=== PATIENT | male | born 1945 | race Caucasian/White ===

== ENCOUNTER 2016-09-14 12:42 | Emergency (ER) | payer MEDICARE, BC ==
[2016-09-14 13:31] VITALS: BP 113/68
[2016-09-14] MEDS ORDERED: NORMAL SALINE 1000 ML 500 ML IV ONE (14:52)
--- NOTE | 2016-09-14 14:55 | ER Document Report ---
ED Medical Screen (RME) - General Chief Complaint: Passed Out Prior to Arrival Stated Complaint: BLOOD PRESSURE CONCERNS Time seen by provider: 14:52 Mode of Arrival: Ambulatory Information source: Patient Notes: 71-year-old male has had a cough for 1-1/2 weeks, sore throat for 3 days and was sitting in Dr. Jones's office waiting to see him today but became sweaty, jerking his extremities, and syncopal episode. Currently he has no pain. He had diarrhea for 2 days. No vomiting. No headache. TRAVEL OUTSIDE OF THE [place] IN LAST 30 DAYS: No - Related Data Allergies/Adverse Reactions: ibuprofen Allergy (Verified 09/14/16 13:27) Past Medical History - Past Medical History Cardiac Medical History: Reports: Hx Hypercholesterolemia, Hx Hypertension Renal/ Medical History: Denies: Hx Peritoneal Dialysis Past Surgical History: Reports: 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) - Immunizations Hx Diphtheria, Pertussis, Tetanus Vaccination: Yes Physical Exam - Vital signs Vitals: Temp Pulse Resp BP Pulse Ox 99.3 F 68 16 113/68 94 09/14/16 13:30 09/14/16 13:30 09/14/16 13:30 09/14/16 13:30 09/14/16 13:30 Course - Vital Signs Vital signs: Temp Pulse Resp BP Pulse Ox 99.3 F 68 16 113/68 94 09/14/16 13:30 09/14/16 13:30 09/14/16 13:30 09/14/16 13:30 09/14/16 13:30
[2016-09-14 15:59] LABS: ABSOLUTE LYMPHOCYTES (AUTO) 1.1 10^3/uL (0.5-4.7); ABSOLUTE MONOCYTES (AUTO) 0.8 10^3/uL (0.1-1.4); ABSOLUTE NEUT (AUTO) 4.3 10^3/uL (1.7-8.2); BASOPHILS % (AUTO) 0.7 % (0-2); EOSINOPHILS % (AUTO) 0.6 % (0-6); HEMOGLOBIN 15.1 g/dL (13.5-17.0); HGB HCT DIFFERENCE 1.3; LYMPHOCYTES % (AUTO) 17.2 % (13-45); MEAN CORPUSCULAR HEMOGLOBIN 33.9 pg (27.0-33.4); MEAN CORPUSCULAR HGB CONC 34.3 g/dL (32.0-36.0); MEAN CORPUSCULAR VOLUME 99 fl (80-97); MONOCYTES % (AUTO) 12.8 % (3-13); RED BLOOD COUNT 4.46 10^6/uL (4.35-5.55); RED CELL DISTRIBUTION WIDTH 13.1 % (11.5-14.0); SEGMENTED NEUTROPHILS % (AUTO) 68.7 % (42-78); WHITE BLOOD COUNT 6.2 10^3/uL (4.0-10.5)
[2016-09-14 16:06] LABS: AMORPHOUS SEDIMENT,URINE TRACE /HPF; APPEARANCE,URINE CLOUDY; BILIRUBIN,URINE NEGATIVE (NEGATIVE); GLUCOSE, URINE NEGATIVE (NEGATIVE); KETONES,URINE 20 mg/dL (NEGATIVE); LEUKOCYTE ESTERASE,URINE NEGATIVE (NEGATIVE); NITRITE,URINE NEGATIVE (NEGATIVE); PROTEIN,URINE NEGATIVE (NEGATIVE); URINE SPECIFIC GRAVITY 1.029; UROBILINOGEN,URINE NEGATIVE mg/dL (<2.0)
[2016-09-14 16:18] LABS: ALANINE AMINOTRANSFERASE 28 U/L (21-72); ALBUMIN 4.3 g/dL (3.5-5.0); ALKALINE PHOSPHATASE 94 U/L (38-126); ANION GAP 13 (5-19); ASPARTATE AMINO TRANSFERASE 28 U/L (17-59); BILIRUBIN,DIRECT 0.3 mg/dL (0.0-0.4); BILIRUBIN,TOTAL 0.7 mg/dL (0.2-1.3); BLOOD UREA NITROGEN 16 mg/dL (7-20); CALCIUM 9.5 mg/dL (8.4-10.2); CARBON DIOXIDE 28 mmol/L (22-30); CHLORIDE 99 mmol/L (98-107); CREATINE KINASE 60 U/L (55-170); CREATININE RESULT 1.01 mg/dL (0.52-1.25); GLUCOSE 98 mg/dL (75-110); POTASSIUM 5.2 mmol/L (3.6-5.0); SODIUM 140.3 mmol/L (137-145); TOTAL PROTEIN 7.7 g/dL (6.3-8.2)
[2016-09-14 16:30] LABS: CREATINE KINASE MB 1.02 ng/mL (<4.55)
[2016-09-14 16:33] LABS: TROPONIN I < 0.012 ng/mL
[2016-09-14] MEDS ORDERED: NORMAL SALINE 1000 ML 1,000 ML IV ONE (18:13)
--- NOTE | 2016-09-14 18:13 | ER Document Report ---
ED General - General Chief Complaint: Passed Out Prior to Arrival Stated Complaint: BLOOD PRESSURE CONCERNS Mode of Arrival: Ambulatory Information source: Patient Notes: 71-year-old male who is on metoprolol to his blood pressure medication without checking his blood pressure today and had not eaten all day presents after syncopal episode. Patient was at his primary care physician's office notes that he felt lightheaded dizzy and passed out patient was sweaty immediately came back to Patient notes similar episode in the past due to a drop in his blood pressure denies any other concerns at this time denies any chest pain shows breath difficult to breathing TRAVEL OUTSIDE OF THE [place] IN LAST 30 DAYS: No - HPI Onset: Just prior to arrival Onset/Duration: Sudden Quality of pain: No pain Severity: Mild Pain Level: Denies Associated symptoms: Weakness Exacerbated by: Denies Relieved by: Denies Similar symptoms previously: Yes Recently seen / treated by doctor: No - Related Data Allergies/Adverse Reactions: ibuprofen Allergy (Verified 09/14/16 13:27) Past Medical History - General Information source: Patient - Social History Smoking Status: Never Smoker Cigarette use (# per day): No Chew tobacco use (# tins/day): No Smoking Education Provided: No Family History: Reviewed & Not Pertinent Patient has suicidal ideation: No Patient has homicidal ideation: No - Past Medical History Cardiac Medical History: Reports: Hx Hypercholesterolemia, Hx Hypertension Renal/ Medical History: Denies: Hx Peritoneal Dialysis Past Surgical History: Reports: 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) - Immunizations Hx Diphtheria, Pertussis, Tetanus Vaccination: Yes Review of Systems - Review of Systems Notes: REVIEW OF SYSTEMS: CONSTITUTIONAL : Denies fever, chills, or sweats. Denies recent illness. EENT: Denies eye, ear, throat, or mouth pain or symptoms. Denies nasal or sinus congestion or discharge. Denies throat, tongue, or mouth swelling or difficulty swallowing. CARDIOVASCULAR: Denies chest pain. Denies palpitations or racing or irregular heart beat. Denies ankle edema. RESPIRATORY: Denies cough, cold, or chest congestion. Denies shortness of breath, difficulty breathing, or wheezing. GASTROINTESTINAL: Denies abdominal pain or distention. Denies nausea, vomiting , or diarrhea. Denies blood in vomitus, stools, or per rectum. Denies black, tarry stools. Denies constipation. GENITOURINARY: Denies difficulty urinating, painful urination, burning, frequency, blood in urine, or discharge. MUSCULOSKELETAL: Denies back or neck pain or stiffness. Denies joint pain or swelling. SKIN: Denies rash, lesions or sores. HEMATOLOGIC : Denies easy bruising or bleeding. LYMPHATIC: Denies swollen, enlarged glands. NEUROLOGICAL: D admits to syncope PSYCHIATRIC: Denies anxiety or stress. Denies depression, suicidal ideation, or homicidal ideation. ALL OTHER SYSTEMS REVIEWED AND NEGATIVE. Dictation was performed using [employer] voice recognition software PHYSICAL EXAMINATION: GENERAL: Well-appearing, well-nourished and in no acute distress. HEAD: Atraumatic, normocephalic. EYES: Pupils equal round and reactive to light, extraocular movements intact, sclera anicteric, conjunctiva are normal. ENT: Nares patent, oropharynx clear without exudates. Moist mucous membranes. NECK: Normal range of motion, supple without lymphadenopathy LUNGS: Breath sounds clear to auscultation bilaterally and equal. No wheezes rales or rhonchi. HEART: Regular rate and rhythm without murmurs ABDOMEN: Soft, nontender, nondistended abdomen. No guarding, no rebound. No masses appreciated. Musculoskeletal: Normal range of motion, no pitting or edema. No cyanosis. NEUROLOGICAL: Cranial nerves grossly intact. Normal speech, normal gait. Normal sensory, motor exams PSYCH: Normal mood, normal affect. SKIN: Warm, Dry, normal turgor, no rashes or lesions noted. Physical Exam - Vital signs Vitals: Temp Pulse Resp BP Pulse Ox 99.3 F 68 16 113/68 94 09/14/16 13:30 09/14/16 13:30 09/14/16 13:30 09/14/16 13:30 09/14/16 13:30 Course - Re-evaluation Re-evalutation: 09/14/16 18:27 Physical examination lab work note no significant abnormality, appears patient was a primary care office because of a sore throat and congestion. He notes he has been hydrating poorly and appears to have been secondary to a hypotensive issue. Patient will be given IV fluids and I expect discharge - Vital Signs Vital signs: Temp Pulse Resp BP Pulse Ox 99.3 F 68 16 113/68 94 09/14/16 13:30 09/14/16 13:30 09/14/16 13:30 09/14/16 13:30 09/14/16 13:30 - Laboratory Result Diagrams: 09/14/16 15:10 09/14/16 15:10 Laboratory results interpreted by me: 09/14/16 09/14/16 09/14/16 15:10 15:10 15:10 MCV 99 H MCH 33.9 H Potassium 5.2 H Urine Ketones 20 H Urine Ascorbic Acid 40 H Discharge - Discharge Clinical Impression: Syncope Qualifiers: Syncope type: unspecified Qualified Code(s): R55 - Syncope and collapse Hypotension Qualifiers: Hypotension type: unspecified hypotension type Qualified Code(s): I95.9 - Hypotension, unspecified Condition: Stable Disposition: HOME, SELF-CARE Instructions: Syncopal Episode ([facility]) Referrals: FREDO CORRALES MD [Primary Care Provider] - Follow up tomorrow
--- NOTE | 2016-09-14 18:18 | EKG REPORT ---
SEVERITY:- ABNORMAL ECG - SINUS RHYTHM ATRIAL PREMATURE COMPLEX INCOMPLETE RIGHT BUNDLE BRANCH BLOCK : Confirmed by: John Tsai MD 14-Sep-2016 18:18:07
== END 2016-09-14 19:32 | disposition home or self-care (01) ==
LOC: ER 12:42
DX: I95.9 Hypotension, unspecified (principal); R55 Syncope and collapse; R53.1 Weakness; I10 Essential (primary) hypertension; Z95.1 Presence of aortocoronary bypass graft; Z88.6 Allergy status to analgesic agent
CPT/HCPCS: 93005; 99285; 36415; 82553; 82550; 85025; 80053; 81001; 84484; 93010; J7030

== ENCOUNTER → 2017-01-19 | Outpatient (CLI) | payer MEDICARE, BC ==
--- NOTE | 2017-01-19 13:27 | RADIOLOGY REPORT (SQ) ---
EXAM DESCRIPTION: CHEST PA/LATERAL COMPLETED DATE/TIME: 01/19/2017 1:20 pm REASON FOR STUDY: FEVER, UNSPECIFIED COMPARISON: 04/11/2015 EXAM PARAMETERS: NUMBER OF VIEWS: two views TECHNIQUE: Digital Frontal and Lateral radiographic views of the chest acquired. RADIATION DOSE: NA LIMITATIONS: none FINDINGS: LUNGS AND PLEURA: No opacities, masses or pneumothorax. No pleural effusion. MEDIASTINUM AND HILAR STRUCTURES: No masses or contour abnormalities. HEART AND VASCULAR STRUCTURES: Heart normal size. No evidence for failure. BONES: No acute findings. HARDWARE: Sternotomy wires are in place. OTHER: Metallic density overlying the upper right lateral chest wall is unchanged. IMPRESSION: NO SIGNIFICANT RADIOGRAPHIC FINDING IN THE CHEST. TECHNICAL DOCUMENTATION: JOB ID: [id number] [employer]- All Rights Reserved
== END ==
LOC: OD 13:01
PROVIDERS: ATTEND Family Medicine
DX: R50.9 Fever, unspecified (principal)
CPT/HCPCS: 71020; 87804

== ENCOUNTER 2017-01-21 11:08 | Inpatient (IN) | payer MEDICARE, BC ==
[2017-01-21] MEDS ORDERED: ONDANSETRON HCL INJ/PF 4 MG/2 ML SDV IV PRN (11:20)
[2017-01-21] MEDS ORDERED: ACETAMINOPHEN 325 MG TABLET PO PRN (11:20)
[2017-01-21 12:14] LABS: ABSOLUTE BASOPHILS # (AUTO) 0.1 10^3/uL (0.0-0.2); ABSOLUTE NEUT (AUTO) 3.4 10^3/uL (1.7-8.2); EOSINOPHILS % (AUTO) 0.7 % (0-6); HEMOGLOBIN 15.6 g/dL (13.5-17.0); HGB HCT DIFFERENCE -0.2; LYMPHOCYTES % (AUTO) 18.7 % (13-45); MEAN CORPUSCULAR HEMOGLOBIN 33.2 pg (27.0-33.4); MEAN CORPUSCULAR HGB CONC 33.2 g/dL (32.0-36.0); MEAN CORPUSCULAR VOLUME 100 fl (80-97); MONOCYTES % (AUTO) 18.8 % (3-13); RED CELL DISTRIBUTION WIDTH 13.4 % (11.5-14.0); SEGMENTED NEUTROPHILS % (AUTO) 60.8 % (42-78); WHITE BLOOD COUNT 5.5 10^3/uL (4.0-10.5)
[2017-01-21 12:21] LABS: PROTHROMBIN TIME 17.9 SEC (11.4-15.4)
--- NOTE | 2017-01-21 12:24 | PDOC H&P ---
History of Present Illness Admission Date/PCP: 01/21/17 11:08 FREDO CORRALES MD Patient complains of: Fever and weakness History of Present Illness: BRENNAN NEWBERRY is a 71 year old male This 71-year-old male with a history of the coronary artery disease status post bypass with the history of the atrial flutter [facility] of the hypertensions and hyperlipidemia came to my office couple of days back with a complaint of fever 100.4 and not feeling well with complaints some urinary frequency Patients denied any cough no chest painDenied any nausea no vomiting Patient at the times to do blood work including the CBC Chem-12In the urine culture blood culture and was all negative Patient's chest x-ray was also negative and influenza test also negative to Since prostate exam was also negative for any infections Patient was empirically given the Levaquin until the cultures back Patients denied any headache no neck stiffness Patient is followed today in office with still have 100.4 fever and still not feeling well With the discussed with the patient and the patient recently see his mother in a nursing homes with his mother have a history of C. difficile colitis in the past Patient's complaint was some mild loose stool but other than that no other symptoms At this point decided to patient admit for this fever of unknown origin for further evaluations Past Medical History Cardiac Medical History: Reports: Atrial Fibrillation, Coronary Artery Disease, Hyperlipidema, Hypertension Past Surgical History Past Surgical History: Reports: Coronary Artery Bypass Graft, Tonsillectomy Social History Information Source: Patient Smoking Status: Never Smoker Frequency of Alcohol Use: Rare Hx Recreational Drug Use: No Family History Family History: Reviewed & Not Pertinent Parental Family History Reviewed: Yes Children Family History Reviewed: Yes Sibling(s) Family History Reviewed.: Yes Medication/Allergy Home Medications: Ascorbic Acid [Vitamin C 500 Mg Tablet] 500 mg PO DAILY 11/27/11 Aspirin [Aspirin 81 mg Chewable Tablet] 81 mg PO DAILY 11/27/11 Losartan Potassium [Cozaar 25 Mg Tablet] 25 mg PO DAILY 11/27/11 Metoprolol Tartrate [Lopressor 25 Mg Tablet] 25 mg PO DAILY 11/27/11 Multivitamin [Multiple Vitamins] 1 each PO DAILY 11/27/11 [place]-3 Fatty Acids/Fish Oil [Fish Oil 1,[address]] 2 each PO DAILY 28/04 Simvastatin [Zocor 20 mg Tablet] 20 mg PO QHS 11/27/11 Albuterol Sulfate [Proair HFA Inhalation Aerosol 8.5 gm MDI] 2 puff IH Q4H PRN # 1 mdi 04/11/15 Levofloxacin [Levaquin 750 mg Tablet] 750 mg PO DAILY #5 tablet 04/11/15 Prednisone [Deltasone 20 mg Tablet] 3 tab PO DAILY 4 Days tablet 04/11/15 Allergies/Adverse Reactions: ibuprofen Allergy (Verified 09/14/16 13:27) Review of Systems Constitutional: PRESENT: chills, fever(s), night sweats, weakness. ABSENT: headache(s), weight gain, weight loss Eyes: ABSENT: visual disturbances Ears: ABSENT: hearing changes Cardiovascular: ABSENT: chest pain, dyspnea on exertion, edema, orthropnea, palpitations Respiratory: ABSENT: cough, hemoptysis Gastrointestinal: PRESENT: bloating, diarrhea. ABSENT: abdominal pain, constipation, hematemesis, hematochezia, nausea, vomiting Genitourinary: ABSENT: dysuria, hematuria Musculoskeletal: ABSENT: joint swelling Integumentary: ABSENT: rash, wounds Neurological: ABSENT: abnormal gait, abnormal speech, confusion, dizziness, focal weakness, syncope Psychiatric: ABSENT: anxiety, depression, homidical ideation, suicidal ideation Endocrine: ABSENT: cold intolerance, heat intolerance, menstrual abnormalities, polydipsia, polyuria Hematologic/Lymphatic: ABSENT: easy bleeding, easy bruising, lymphadenopathy Physical Exam General appearance: PRESENT: no acute distress, well-developed, well-nourished Head exam: PRESENT: atraumatic, normocephalic Eye exam: PRESENT: conjunctiva pink, EOMI, PERRLA. ABSENT: scleral icterus Ear exam: PRESENT: normal external ear exam Mouth exam: PRESENT: moist, tongue midline Neck exam: PRESENT: full ROM. ABSENT: carotid bruit, JVD, lymphadenopathy, thyromegaly Respiratory exam: PRESENT: clear to auscultation mitch Cardiovascular exam: PRESENT: RRR. ABSENT: diastolic murmur, rubs, systolic murmur Pulses: PRESENT: normal dorsalis pedis pul, +2 pedal pulses bilateral Vascular exam: PRESENT: normal capillary refill GI/Abdominal exam: PRESENT: normal bowel sounds, soft. ABSENT: distended, guarding, mass, organolmegaly, rebound, tenderness Rectal exam: PRESENT: deferred Extremities exam: ABSENT: pedal edema Musculoskeletal exam: PRESENT: ambulatory Neurological exam: PRESENT: alert, awake, oriented to person, oriented to place , oriented to time, oriented to situation, CN II-XII grossly intact. ABSENT: motor sensory deficit Psychiatric exam: PRESENT: appropriate affect, normal mood. ABSENT: homicidal ideation, suicidal ideation Skin exam: PRESENT: dry, intact, warm. ABSENT: cyanosis, rash Assessment & Plan - Diagnosis (1) Fever Qualifiers: Fever type: unspecified Qualified Code(s): R50.9 - Fever, unspecified Is this a current diagnosis for this admission?: Yes Plan: With unclear etiology with the recent symptom exposure will repeat the blood culture urine culture and MRSA culture will get the CT of the chest and abdomen and pelvis to rule out any occult infections Patients do not have any sign of any meningitis and denied any complaints Start some IV antibiotic until all cultures back patient's already received 3 days of the Levaquin p.o. (2) Coronary artery disease Qualifiers: Coronary Disease-Associated Artery/Lesion type: unspecified vessel or lesion type Is this a current diagnosis for this admission?: Yes Plan: Patient recently see the [facility] cardiology and the patient's all the test was stable and according to the patient (3) Hypertension Qualifiers: Hypertension type: essential hypertension Qualified Code(s): I10 - Essential (primary) hypertension Is this a current diagnosis for this admission?: Yes Plan: Continues to current medications (4) Atrial flutter Qualifiers: Atrial flutter type: unspecified Qualified Code(s): I48.92 - Unspecified atrial flutter Is this a current diagnosis for this admission?: Yes Plan: Patient's currently on Eliquis for the cardiology (5) Hyperlipidemia Qualifiers: Hyperlipidemia type: unspecified Qualified Code(s): E78.5 - Hyperlipidemia , unspecified Is this a current diagnosis for this admission?: Yes Plan: Continues current medications (6) Impaired fasting glucose Is this a current diagnosis for this admission?: Yes Plan: Put the patient on a sliding scale - Time Time Spent: 30 to 50 Minutes Medications reviewed and adjusted accordingly: Yes Anticipated discharge: Home Within: Other - Inpatient Certification Medical Necessity: Need Close Monitoring Due to Risk of Patient Decompensation, Need for IV Antibiotics 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
[2017-01-21 12:33] LABS: ALANINE AMINOTRANSFERASE 51 U/L (21-72); ALKALINE PHOSPHATASE 103 U/L (38-126); ANION GAP 14 (5-19); ASPARTATE AMINO TRANSFERASE 53 U/L (17-59); BILIRUBIN,DIRECT 0.4 mg/dL (0.0-0.4); BILIRUBIN,TOTAL 0.6 mg/dL (0.2-1.3); BLOOD UREA NITROGEN 19 mg/dL (7-20); CALCIUM 9.3 mg/dL (8.4-10.2); CARBON DIOXIDE 25 mmol/L (22-30); CHLORIDE 96 mmol/L (98-107); CREATINE KINASE 74 U/L (55-170); CREATININE RESULT 1.75 mg/dL (0.52-1.25); GLUCOSE 108 mg/dL (75-110); MAGNESIUM 2.1 mg/dL (1.6-2.3); POTASSIUM 4.8 mmol/L (3.6-5.0); SODIUM 134.6 mmol/L (137-145); TOTAL PROTEIN 7.2 g/dL (6.3-8.2)
[2017-01-21 12:45] LABS: CREATINE KINASE MB 1.49 ng/mL (<4.55); TROPONIN I 0.021 ng/mL
[2017-01-21] MEDS: CEFEPIME 1 GM/D5W RTU 1 GM/50 ML RTUPB IV SCH ×2 (12:58→23:05)
[2017-01-21] MEDS: NORMAL SALINE 1000 ML 1,000 ML IV PRN ×2 (12:59→23:04)
--- NOTE | 2017-01-21 13:51 | EKG REPORT ---
SEVERITY:- ABNORMAL ECG - SINUS RHYTHM INCOMPLETE RIGHT BUNDLE BRANCH BLOCK : Confirmed by: John Tsai MD 21-Jan-2017 13:50:23
[2017-01-21 15:25] LABS: CREATINE KINASE MB 1.54 ng/mL (<4.55); TROPONIN I 0.016 ng/mL
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
[2017-01-21] MEDS: LANSOPRAZOLE 15 MG TAB.RAP.DR PO SCH (18:09)
[2017-01-21] MEDS: CETIRIZINE 5 MG TABLET PO SCH (18:09)
[2017-01-21] MEDS: METOPROLOL TARTRATE 25 MG TABLET PO SCH (21:48)
[2017-01-21] MEDS: ATORVASTATIN CALCIUM 40 MG TABLET PO SCH (21:49)
[2017-01-21 21:50] LABS: CREATINE KINASE MB 2.27 ng/mL (<4.55)
[2017-01-21] MEDS: APIXABAN 5 MG TABLET PO SCH (21:50)
[2017-01-21 22:01] LABS: TROPONIN I < 0.012 ng/mL
[2017-01-22 03:38] LABS: ABSOLUTE BASOPHILS # (AUTO) 0.1 10^3/uL (0.0-0.2); ABSOLUTE EOSINOPHILS # (AUTO) 0.2 10^3/uL (0.0-0.6); ABSOLUTE LYMPHOCYTES (AUTO) 1.4 10^3/uL (0.5-4.7); ABSOLUTE MONOCYTES (AUTO) 0.9 10^3/uL (0.1-1.4); ABSOLUTE NEUT (AUTO) 3.1 10^3/uL (1.7-8.2); BASOPHILS % (AUTO) 1.1 % (0-2); EOSINOPHILS % (AUTO) 3.3 % (0-6); HEMATOCRIT 40.3 % (37.9-51.0); HEMOGLOBIN 14.1 g/dL (13.5-17.0); LYMPHOCYTES % (AUTO) 25.1 % (13-45); MEAN CORPUSCULAR HEMOGLOBIN 34.2 pg (27.0-33.4); MEAN CORPUSCULAR HGB CONC 34.9 g/dL (32.0-36.0); MEAN CORPUSCULAR VOLUME 98 fl (80-97); MONOCYTES % (AUTO) 15.4 % (3-13); RED BLOOD COUNT 4.11 10^6/uL (4.35-5.55); RED CELL DISTRIBUTION WIDTH 13.2 % (11.5-14.0); SEGMENTED NEUTROPHILS % (AUTO) 55.1 % (42-78); WHITE BLOOD COUNT 5.6 10^3/uL (4.0-10.5)
[2017-01-22 03:46] LABS: ANION GAP 8 (5-19); BLOOD UREA NITROGEN 21 mg/dL (7-20); CALCIUM 8.7 mg/dL (8.4-10.2); CARBON DIOXIDE 28 mmol/L (22-30); CHLORIDE 98 mmol/L (98-107); CREATINE KINASE 67 U/L (55-170); CREATININE RESULT 1.08 mg/dL (0.52-1.25); GLUCOSE 101 mg/dL (75-110); POTASSIUM 4.1 mmol/L (3.6-5.0); SODIUM 133.6 mmol/L (137-145)
[2017-01-22 03:58] LABS: CREATINE KINASE MB 2.59 ng/mL (<4.55); TROPONIN I < 0.012 ng/mL
[2017-01-22] MEDS: LANSOPRAZOLE 15 MG TAB.RAP.DR PO SCH ×2 (05:31→17:26)
--- NOTE | 2017-01-22 08:44 | PDOC CONSULTATION ---
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 Corrales, also about 3-4 weeks ago he began having signs and symptoms of A. fib, went to cardiology and has been placed on different rate control meds as well as Eliquis. Dr. Corrales decided to admit the patient because of the fever of unknown origin that did not seem to resolve with outpatient therapy, he is placed on broad-spectrum antibiotics, cultures blood urine sputum are all pending, of note CBC indicated a monocytosis, Monospot test was negative, influenza test was negative, we have sent a flow cytometry. Of note, he did have CT of the chest abdomen pelvis looking for occult source of infection, this indicated a right upper lobe 1.1 x 1.3 cm lung nodule along with a 2.2 cm subcarinal lymph node. Past Medical History Cardiac Medical History: Reports: Atrial Fibrillation, Coronary Artery Disease, Hyperlipidema, Hypertension Past Surgical History Past Surgical History: Reports: Coronary Artery Bypass Graft, Tonsillectomy Social History Information Source: Patient Smoking Status: Former Smoker Cigarettes Packs Per Day: 1.5 Number of Years Smokin Frequency of Alcohol Use: Rare Hx Recreational Drug Use: No Hx Prescription Drug Abuse: No - Advance Directive Resuscitation Status: Full Code Family History Family History: Reviewed & Not Pertinent Parental Family History Reviewed: Yes Children Family History Reviewed: Yes Sibling(s) Family History Reviewed.: Yes Medication/Allergy Home Medications: Apixaban [Eliquis] 5 mg PO Q12 01/21/17 Aspirin [Ecotrin 81 mg EC Tablet] 81 mg PO DAILY 01/21/17 Atorvastatin Calcium [Lipitor 40 mg Tablet] 40 mg PO QHS 01/21/17 Levocetirizine Dihydrochloride [Xyzal] 5 mg PO QPM 01/21/17 Losartan Potassium [Cozaar 25 mg Tablet] 25 mg PO DAILY 01/21/17 Metoprolol Tartrate [Lopressor 25 mg Tablet] 25 mg PO Q12 01/21/17 Multivitamin [Daily Multiple Vitamin] 1 tab PO DAILY 01/21/17 Stanley-3 Fatty Acids [Fish Oil Concentrate] 1,000 mg PO QHS 01/21/17 Allergies/Adverse Reactions: ibuprofen Allergy (Verified 09/14/16 13:27) Review of Systems Constitutional: ABSENT: chills, fever(s), headache(s), weight gain, weight loss Eyes: ABSENT: visual disturbances Ears: ABSENT: hearing changes Cardiovascular: ABSENT: chest pain, dyspnea on exertion, edema, orthropnea, palpitations Respiratory: ABSENT: cough, hemoptysis Gastrointestinal: ABSENT: abdominal pain, constipation, diarrhea, hematemesis, hematochezia, nausea, vomiting Genitourinary: ABSENT: dysuria, hematuria Musculoskeletal: ABSENT: joint swelling Integumentary: ABSENT: rash, wounds Neurological: ABSENT: abnormal gait, abnormal speech, confusion, dizziness, focal weakness, syncope Psychiatric: ABSENT: anxiety, depression, homidical ideation, suicidal ideation Endocrine: ABSENT: cold intolerance, heat intolerance, polydipsia, polyuria Hematologic/Lymphatic: ABSENT: easy bleeding, easy bruising Physical Exam Vital Signs: Temp Pulse Resp BP Pulse Ox 100.7 F H 70 16 118/69 94 01/22/17 03:34 01/22/17 03:34 01/22/17 03:34 01/22/17 03:34 01/22/17 03:34 Intake & Output 01/21/17 01/22/17 01/23/17 06:59 06:59 06:59 Intake Total 3121 Output Total 200 Balance 2921 Weight 90.2 kg General appearance: PRESENT: no acute distress, well-developed, well-nourished Head exam: PRESENT: atraumatic, normocephalic Eye exam: PRESENT: conjunctiva pink, EOMI, PERRLA. ABSENT: scleral icterus Ear exam: PRESENT: normal external ear exam Mouth exam: PRESENT: moist, tongue midline Neck exam: ABSENT: carotid bruit, JVD, lymphadenopathy, thyromegaly Respiratory exam: PRESENT: clear to auscultation mitch. ABSENT: rales, rhonchi, wheezes Cardiovascular exam: PRESENT: RRR. ABSENT: diastolic murmur, rubs, systolic murmur Pulses: PRESENT: normal dorsalis pedis pul Vascular exam: PRESENT: normal capillary refill GI/Abdominal exam: PRESENT: normal bowel sounds, soft. ABSENT: distended, guarding, mass, organolmegaly, rebound, tenderness Rectal exam: PRESENT: deferred Extremities exam: PRESENT: full ROM. ABSENT: calf tenderness, clubbing, pedal edema Neurological exam: PRESENT: alert, awake, oriented to person, oriented to place , oriented to time, oriented to situation, CN II-XII grossly intact. ABSENT: motor sensory deficit Psychiatric exam: PRESENT: appropriate affect, normal mood. ABSENT: homicidal ideation, suicidal ideation Skin exam: PRESENT: dry, intact, warm. ABSENT: cyanosis, rash Results Laboratory Results: 01/22/17 03:24 01/22/17 03:24 01/21/17 01/21/17 01/21/17 11:50 11:50 12:50 WBC 5.5 RBC 4.70 Hgb 15.6 Hct 47.0 MCV 100 H MCH 33.2 MCHC 33.2 RDW 13.4 Plt Count 146 L Seg Neutrophils % 60.8 Lymphocytes % 18.7 Monocytes % 18.8 H Eosinophils % 0.7 Basophils % 1.0 Absolute Neutrophils 3.4 Absolute Lymphocytes 1.0 Absolute Monocytes 1.0 Absolute Eosinophils 0.0 Absolute Basophils 0.1 Sodium 134.6 L Potassium 4.8 Chloride 96 L Carbon Dioxide 25 Anion Gap 14 BUN 19 Creatinine 1.75 H Est GFR ( Amer) 47 L Est GFR (Non-Af Amer) 39 L Glucose 108 Lactic Acid Calcium 9.3 Magnesium 2.1 Total Bilirubin 0.6 AST 53 ALT 51 Alkaline Phosphatase 103 Total Protein 7.2 Albumin 4.0 Stool for White Cells NO WBCs SEEN 01/21/17 01/22/17 01/22/17 16:15 03:24 03:24 WBC 5.6 RBC 4.11 L Hgb 14.1 Hct 40.3 MCV 98 H MCH 34.2 H MCHC 34.9 RDW 13.2 Plt Count 129 L Seg Neutrophils % 55.1 Lymphocytes % 25.1 Monocytes % 15.4 H Eosinophils % 3.3 Basophils % 1.1 Absolute Neutrophils 3.1 Absolute Lymphocytes 1.4 Absolute Monocytes 0.9 Absolute Eosinophils 0.2 Absolute Basophils 0.1 Sodium 133.6 L Potassium 4.1 Chloride 98 Carbon Dioxide 28 Anion Gap 8 BUN 21 H Creatinine 1.08 Est GFR ( Amer) > 60 Est GFR (Non-Af Amer) > 60 Glucose 101 Lactic Acid 1.0 Calcium 8.7 Magnesium Total Bilirubin AST ALT Alkaline Phosphatase Total Protein Albumin Stool for White Cells 01/21/17 01/21/17 01/21/17 11:50 11:50 13:51 Creatine Kinase 74 58 CK-MB (CK-2) 1.49 Troponin I 0.021 01/21/17 01/21/17 01/21/17 13:51 21:05 21:05 Creatine Kinase 69 CK-MB (CK-2) 1.54 2.27 Troponin I 0.016 < 0.012 01/22/17 01/22/17 03:24 03:24 Creatine Kinase 67 CK-MB (CK-2) 2.59 Troponin I < 0.012 Impressions: Abdomen/Pelvis CT 01/21/17 00:00 IMPRESSION: Right upper lobe nodule worrisome for malignancy. Consider PET-CT for followup. No focal acute infiltrates. Unremarkable CT the abdomen pelvis with oral contrast. Chest CT 01/21/17 00:00 IMPRESSION: Right upper lobe nodule worrisome for malignancy. Consider PET-CT for followup. No focal acute infiltrates. Unremarkable CT the abdomen pelvis with oral contrast. Status: Image reviewed by me Assessment & Plan - Diagnosis (1) Fever Qualifiers: Fever type: unspecified Qualified Code(s): R50.9 - Fever, unspecified Is this a current diagnosis for this admission?: Yes Plan: Patient with fever of unknown origin, agree with current workup and antibiotics , I suggested the possibility of arboviral infection, Dr. Corrales will do testing for that as well as place patient on doxycycline. We do have flow cytometry pending for a monocytosis. I do not believe the lung findings are causing this , it is unlikely that he has some sort of a lymphoma or blood dyscrasia causing this. It is much more likely to be some sort of arboviral or other atypical infection. (2) Solitary pulmonary nodule Is this a current diagnosis for this admission?: Yes Plan: Patient with solitary pulmonary nodule, along with subcarinal adenopathy, with smoking history concerning for a primary lung cancer, we will work this up further as an outpatient with PET/CT. We would like the fever to resolve before we do PET/CT however. - Time Time Spent: Greater than 70 Minutes Critical Time spent with patient: 35 or more minutes - Inpatient Certification Based on my medical assessment, after consideration of the patient's comorbidities, presenting symptoms, or acuity I expect that the services needed warrant INPATIENT care.: Yes I certify that my determination is in accordance with my understanding of Medicare's requirements for reasonable and necessary INPATIENT services [42 CFR 412.3e].: Yes Medical Necessity: Failure to Improve With Outpatient Therapy, Need for IV Antibiotics
[2017-01-22] MEDS: ASPIRIN 81 MG TABLET, ENT COATED PO SCH (09:52)
[2017-01-22] MEDS: APIXABAN 5 MG TABLET PO SCH ×2 (09:53→21:33)
[2017-01-22] MEDS: METOPROLOL TARTRATE 25 MG TABLET PO SCH ×2 (09:53→21:31)
[2017-01-22] MEDS: CEFEPIME 1 GM/D5W RTU 1 GM/50 ML RTUPB IV SCH (11:19)
[2017-01-22] MEDS: NORMAL SALINE 1000 ML 1,000 ML IV PRN (11:19)
--- NOTE | 2017-01-22 13:04 | PDOC PROGRESS REPORT ---
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2 kg General appearance: PRESENT: no acute distress, well-developed, well-nourished Head exam: PRESENT: atraumatic, normocephalic Eye exam: PRESENT: conjunctiva pink, EOMI, PERRLA. ABSENT: scleral icterus Ear exam: PRESENT: normal external ear exam Mouth exam: PRESENT: moist, tongue midline Neck exam: PRESENT: full ROM. ABSENT: carotid bruit, JVD, lymphadenopathy, thyromegaly Respiratory exam: PRESENT: clear to auscultation mitch Cardiovascular exam: PRESENT: RRR. ABSENT: diastolic murmur, rubs, systolic murmur Pulses: PRESENT: normal dorsalis pedis pul, +2 pedal pulses bilateral Vascular exam: PRESENT: normal capillary refill GI/Abdominal exam: PRESENT: normal bowel sounds, soft. ABSENT: distended, guarding, mass, organolmegaly, rebound, tenderness Rectal exam: PRESENT: deferred Neurological exam: PRESENT: alert, awake, oriented to person, oriented to place , oriented to time, oriented to situation, CN II-XII grossly intact. ABSENT: motor sensory deficit Psychiatric exam: PRESENT: appropriate affect, normal mood. ABSENT: homicidal ideation, suicidal ideation Skin exam: PRESENT: dry, intact, warm. ABSENT: cyanosis, rash Results Laboratory Results: 01/22/17 03:24 01/22/17 03:24 01/21/17 01/21/17 01/22/17 12:50 16:15 03:24 WBC 5.6 RBC 4.11 L Hgb 14.1 Hct 40.3 MCV 98 H MCH 34.2 H MCHC 34.9 RDW 13.2 Plt Count 129 L Seg Neutrophils % 55.1 Lymphocytes % 25.1 Monocytes % 15.4 H Eosinophils % 3.3 Basophils % 1.1 Absolute Neutrophils 3.1 Absolute Lymphocytes 1.4 Absolute Monocytes 0.9 Absolute Eosinophils 0.2 Absolute Basophils 0.1 Sodium Potassium Chloride Carbon Dioxide Anion Gap BUN Creatinine Est GFR ( Amer) Est GFR (Non-Af Amer) Glucose Lactic Acid 1.0 Calcium Stool for White Cells NO WBCs SEEN 01/22/17 03:24 WBC RBC Hgb Hct MCV MCH MCHC RDW Plt Count Seg Neutrophils % Lymphocytes % Monocytes % Eosinophils % Basophils % Absolute Neutrophils Absolute Lymphocytes Absolute Monocytes Absolute Eosinophils Absolute Basophils Sodium 133.6 L Potassium 4.1 Chloride 98 Carbon Dioxide 28 Anion Gap 8 BUN 21 H Creatinine 1.08 Est GFR ( Amer) > 60 Est GFR (Non-Af Amer) > 60 Glucose 101 Lactic Acid Calcium 8.7 Stool for White Cells 01/21/17 01/21/17 01/21/17 11:50 11:50 13:51 Creatine Kinase 74 58 CK-MB (CK-2) 1.49 Troponin I 0.021 01/21/17 01/21/17 01/21/17 13:51 21:05 21:05 Creatine Kinase 69 CK-MB (CK-2) 1.54 2.27 Troponin I 0.016 < 0.012 01/22/17 01/22/17 03:24 03:24 Creatine Kinase 67 CK-MB (CK-2) 2.59 Troponin I < 0.012 Impressions: Abdomen/Pelvis CT 01/21/17 00:00 IMPRESSION: Right upper lobe nodule worrisome for malignancy. Consider PET-CT for followup. No focal acute infiltrates. Unremarkable CT the abdomen pelvis with oral contrast. Chest CT 01/21/17 00:00 IMPRESSION: Right upper lobe nodule worrisome for malignancy. Consider PET-CT for followup. No focal acute infiltrates. Unremarkable CT the abdomen pelvis with oral contrast. Assessment & Plan - Diagnosis (1) Fever Qualifiers: Fever type: unspecified Qualified Code(s): R50.9 - Fever, unspecified Is this a current diagnosis for this admission?: Yes Plan: Unclear etiology will wait for the certain test we ordered the Lyme titer and [place] spotted fever Start the patient on the p.o. doxycycline We also order the echocardiogram to rule out any vegetations Continues to IV antibiotic coverage until all cultures back (2) Coronary artery disease Qualifiers: Coronary Disease-Associated Artery/Lesion type: unspecified vessel or lesion type Is this a current diagnosis for this admission?: Yes Plan: Patient recently see the [facility] cardiology and the patient's all the test was stable and according to the patient (3) Hypertension Qualifiers: Hypertension type: essential hypertension Qualified Code(s): I10 - Essential (primary) hypertension Is this a current diagnosis for this admission?: Yes Plan: Continues to current medications (4) Atrial flutter Qualifiers: Atrial flutter type: unspecified Qualified Code(s): I48.92 - Unspecified atrial flutter Is this a current diagnosis for this admission?: Yes Plan: Patient's currently on Eliquis for the cardiology (5) Hyperlipidemia Qualifiers: Hyperlipidemia type: unspecified Qualified Code(s): E78.5 - Hyperlipidemia , unspecified Is this a current diagnosis for this admission?: Yes Plan: Continues current medications (6) Impaired fasting glucose Is this a current diagnosis for this admission?: Yes (7) Solitary pulmonary nodule Is this a current diagnosis for this admission?: Yes Plan: Already consulted by the oncology follow outpatient - Time Time Spent with patient: 15-24 minutes Medications reviewed and adjusted accordingly: Yes Anticipated discharge: Home Within: Other - Inpatient Certification Medical Necessity: Need For IV Fluids, Need for IV Antibiotics 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
[2017-01-22] MEDS: CETIRIZINE 5 MG TABLET PO SCH (17:27)
[2017-01-22] MEDS: ATORVASTATIN CALCIUM 40 MG TABLET PO SCH (21:32)
[2017-01-22] MEDS: DOXYCYCLINE HYCLATE 100 MG TABLET PO SCH (21:33)
[2017-01-23] MEDS: CEFEPIME 1 GM/D5W RTU 1 GM/50 ML RTUPB IV SCH ×2 (00:25→11:25)
[2017-01-23] MEDS: NORMAL SALINE 1000 ML 1,000 ML IV PRN (00:29)
[2017-01-23] MEDS: LANSOPRAZOLE 15 MG TAB.RAP.DR PO SCH ×2 (05:05→17:09)
[2017-01-23 05:52] LABS: ABSOLUTE BASOPHILS # (AUTO) 0.1 10^3/uL (0.0-0.2); ABSOLUTE EOSINOPHILS # (AUTO) 0.2 10^3/uL (0.0-0.6); ABSOLUTE LYMPHOCYTES (AUTO) 1.8 10^3/uL (0.5-4.7); ABSOLUTE MONOCYTES (AUTO) 0.7 10^3/uL (0.1-1.4); ABSOLUTE NEUT (AUTO) 2.4 10^3/uL (1.7-8.2); BASOPHILS % (AUTO) 1.4 % (0-2); EOSINOPHILS % (AUTO) 4.1 % (0-6); HEMATOCRIT 41.4 % (37.9-51.0); HEMOGLOBIN 14.1 g/dL (13.5-17.0); HGB HCT DIFFERENCE 0.9; LYMPHOCYTES % (AUTO) 34.6 % (13-45); MEAN CORPUSCULAR HEMOGLOBIN 33.6 pg (27.0-33.4); MEAN CORPUSCULAR VOLUME 99 fl (80-97); MONOCYTES % (AUTO) 14.2 % (3-13); RED BLOOD COUNT 4.19 10^6/uL (4.35-5.55); RED CELL DISTRIBUTION WIDTH 13.3 % (11.5-14.0); SEGMENTED NEUTROPHILS % (AUTO) 45.7 % (42-78); WHITE BLOOD COUNT 5.2 10^3/uL (4.0-10.5)
[2017-01-23 06:09] LABS: ANION GAP 7 (5-19); BLOOD UREA NITROGEN 13 mg/dL (7-20); CARBON DIOXIDE 29 mmol/L (22-30); CHLORIDE 99 mmol/L (98-107); CREATININE RESULT 0.97 mg/dL (0.52-1.25); GLUCOSE 96 mg/dL (75-110); POTASSIUM 4.4 mmol/L (3.6-5.0); SODIUM 135.3 mmol/L (137-145)
[2017-01-23] MEDS: ASPIRIN 81 MG TABLET, ENT COATED PO SCH (09:32)
[2017-01-23] MEDS: DOXYCYCLINE HYCLATE 100 MG TABLET PO SCH ×2 (09:32→22:31)
[2017-01-23] MEDS: METOPROLOL TARTRATE 25 MG TABLET PO SCH ×2 (09:32→22:29)
[2017-01-23] MEDS: APIXABAN 5 MG TABLET PO SCH ×2 (09:32→22:31)
[2017-01-23] MEDS: RANOLAZINE 500 MG TAB.SR.12H PO SCH ×2 (11:25→22:28)
--- NOTE | 2017-01-23 16:05 | PDOC PROGRESS REPORT ---
Subjective Progress Note for:: 01/23/17 Subjective:: He was very bedside, he was admitted for fever, he had episode of paroxysmal atrial fibrillation earlier today. Physical Exam Vital Signs: Temp Pulse Resp BP Pulse Ox 99.1 F 92 18 116/71 95 01/23/17 11:58 01/23/17 14:00 01/23/17 11:58 01/23/17 11:58 01/23/17 11:58 Intake & Output 01/22/17 01/23/17 01/24/17 06:59 06:59 06:59 Intake Total 3121 2705 1000 Output Total 200 2428 5 Balance 2921 277 995 Weight 90.2 kg 89.4 kg General appearance: PRESENT: no acute distress Eye exam: PRESENT: PERRLA Respiratory exam: PRESENT: clear to auscultation mitch Cardiovascular exam: PRESENT: +S1, +S2 GI/Abdominal exam: PRESENT: soft Neurological exam: PRESENT: alert Results Laboratory Results: 01/23/17 05:18 01/23/17 05:18 01/23/17 01/23/17 05:18 05:18 WBC 5.2 RBC 4.19 L Hgb 14.1 Hct 41.4 MCV 99 H MCH 33.6 H MCHC 34.0 RDW 13.3 Plt Count 140 L Seg Neutrophils % 45.7 Lymphocytes % 34.6 Monocytes % 14.2 H Eosinophils % 4.1 Basophils % 1.4 Absolute Neutrophils 2.4 Absolute Lymphocytes 1.8 Absolute Monocytes 0.7 Absolute Eosinophils 0.2 Absolute Basophils 0.1 Sodium 135.3 L Potassium 4.4 Chloride 99 Carbon Dioxide 29 Anion Gap 7 BUN 13 Creatinine 0.97 Est GFR ( Amer) > 60 Est GFR (Non-Af Amer) > 60 Glucose 96 Calcium 9.0 01/21/17 23:00 Throat Throat Culture - Final NORMAL VAMSI 01/22/17 09:12 Nasophary ([facility] Only) MRSA Surveillance Culture - Final NO MRSA RECOVERED 01/21/17 21:28 Clean Catch Midstream Urine Culture - Final NO GROWTH 2 DAYS 01/21/17 12:50 Stool - Stool - Final 01/21/17 12:50 Stool - Stool Stool Culture - Final C.albicans/C.dubliniensis 01/21/17 01/21/17 01/21/17 11:50 11:50 13:51 Creatine Kinase 74 58 CK-MB (CK-2) 1.49 Troponin I 0.021 01/21/17 01/21/17 01/21/17 13:51 21:05 21:05 Creatine Kinase 69 CK-MB (CK-2) 1.54 2.27 Troponin I 0.016 < 0.012 01/22/17 01/22/17 03:24 03:24 Creatine Kinase 67 CK-MB (CK-2) 2.59 Troponin I < 0.012 Impressions: Abdomen/Pelvis CT 01/21/17 00:00 IMPRESSION: Right upper lobe nodule worrisome for malignancy. Consider PET-CT for followup. No focal acute infiltrates. Unremarkable CT the abdomen pelvis with oral contrast. Chest CT 01/21/17 00:00 IMPRESSION: Right upper lobe nodule worrisome for malignancy. Consider PET-CT for followup. No focal acute infiltrates. Unremarkable CT the abdomen pelvis with oral contrast. Assessment & Plan - Diagnosis (1) Atrial flutter Qualifiers: Atrial flutter type: unspecified Qualified Code(s): I48.92 - Unspecified atrial flutter Is this a current diagnosis for this admission?: Yes (2) Coronary artery disease Qualifiers: Coronary Disease-Associated Artery/Lesion type: unspecified vessel or lesion type Is this a current diagnosis for this admission?: Yes (3) Hyperlipidemia Qualifiers: Hyperlipidemia type: unspecified Qualified Code(s): E78.5 - Hyperlipidemia , unspecified Is this a current diagnosis for this admission?: Yes (4) Hypertension Qualifiers: Hypertension type: essential hypertension Qualified Code(s): I10 - Essential (primary) hypertension Is this a current diagnosis for this admission?: Yes (5) Impaired fasting glucose Is this a current diagnosis for this admission?: Yes (6) Solitary pulmonary nodule Is this a current diagnosis for this admission?: Yes
--- NOTE | 2017-01-23 16:42 | PDOC CONSULTATION ---
Consultation Consult Date: 01/22/17 Attending physician:: FREDO CORRALES Consult reason:: Fever of unknown origin History of Present Illness Admission Date/PCP: 01/21/17 11:08 FREDO CORRALES MD Patient complains of: Fever History of Present Illness: Patient was actually seen yesterday. A progress report was entered and subsequently changed to consult. 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 Corrales, also about 3- 4 weeks ago he began having signs and symptoms of A. fib, went to cardiology and has been placed on different rate control meds as well as Eliquis. Dr. Corrales decided to admit the patient because of the fever of unknown origin that did not seem to resolve with outpatient therapy, he is placed on broad-spectrum antibiotics, cultures blood urine sputum are all pending, of note CBC indicated a monocytosis, Monospot test was negative, influenza test was negative, we have sent a flow cytometry. Of note, he did have CT of the chest abdomen pelvis looking for occult source of infection, this indicated a right upper lobe 1.1 x 1.3 cm lung nodule along with a 2.2 cm subcarinal lymph node. Patient gives history of coronary artery bypass graft surgery. He denied any recent chest pain. He has a history of paroxysmal atrial fibrillation. Patient denying any recent syncope or near syncope. I was asked to evaluate patient to rule out any endocarditis. Patient denying any significant joint swelling or joint pains. Patient denied any recent significant weight loss. The above history was reviewed, supplemented and confirmed. Past Medical History Cardiac Medical History: Reports: Atrial Fibrillation, Coronary Artery Disease, Hyperlipidema, Hypertension Past Surgical History Past Surgical History: Reports: Coronary Artery Bypass Graft, Tonsillectomy Social History Information Source: Patient Smoking Status: Former Smoker Cigarettes Packs Per Day: 1.5 Number of Years Smokin Frequency of Alcohol Use: Rare Hx Recreational Drug Use: No Hx Prescription Drug Abuse: No - Advance Directive Resuscitation Status: Full Code Surrogate healthcare decision maker:: Patient spouse is the surrogate decision-maker Family History Family History: CAD, Hypertension Parental Family History Reviewed: Yes Children Family History Reviewed: Yes Sibling(s) Family History Reviewed.: Yes Medication/Allergy Home Medications: Apixaban [Eliquis] 5 mg PO Q12 01/21/17 Aspirin [Ecotrin 81 mg EC Tablet] 81 mg PO DAILY 01/21/17 Atorvastatin Calcium [Lipitor 40 mg Tablet] 40 mg PO QHS 01/21/17 Levocetirizine Dihydrochloride [Xyzal] 5 mg PO QPM 01/21/17 Losartan Potassium [Cozaar 25 mg Tablet] 25 mg PO DAILY 01/21/17 Metoprolol Tartrate [Lopressor 25 mg Tablet] 25 mg PO Q12 01/21/17 Multivitamin [Daily Multiple Vitamin] 1 tab PO DAILY 01/21/17 Stollings-3 Fatty Acids [Fish Oil Concentrate] 1,000 mg PO QHS 01/21/17 Allergies/Adverse Reactions: ibuprofen Allergy (Verified 09/14/16 13:27) Review of Systems Review of Systems: Please see history of present illness and past medical history as wall. Constitutional: Recent fever or chills reported. Head : No recent chronic headaches, recent head injury. Eyes: No recent eye pain, diplopia, redness, discharge, acute visual changes. Ears: No recent chronic ear pain, acute hearing loss, ear discharge. Oral cavity: No recent ulcerations, bleeding, oral cavity discomfort. Neck: No recent acute neck pain reported. Hematologic: No recent easy bruising or bleeding or hematologic malignancy reported. Lymphatic: No recent lymphatic malignancy, chronic lymphadenopathy reported yet Cardiovascular system review: See history of present illness. Respiratory system review: No recent chronic cough, hemoptysis, blood clots in the lungs reported. Mild Shortness of breath on exertion Gastrointestinal system review: Negative for any recent acute or chronic abdominal pain, hematemesis, melena, recent change in bowel habits. Genitourinary system review: No recent acute or chronic hematuria, flank pain, UTI etc. reported. Skin system review: Negative for any recent abnormal bruising, no rash, no pruritus reported. Neurologic: No prior history of strokes, mini strokes, seizure disorder. Psychologic: No history of major psychosis or major depression reported. Musculoskeletal: Minor aches and pains reported. No acute joint swelling reported. Endocrine: No recent polyuria, polydipsia, recent heat or cold intolerance. Physical Exam Vital Signs: Temp Pulse Resp BP Pulse Ox 99.0 F 88 18 112/67 96 01/23/17 15:52 01/23/17 15:52 01/23/17 15:52 01/23/17 15:52 01/23/17 15:52 Intake & Output 01/22/17 01/23/17 01/24/17 06:59 06:59 06:59 Intake Total 3121 2705 1000 Output Total 200 2428 5 Balance 2921 277 995 Weight 90.2 kg 89.4 kg Exam: GENERAL: well-nourished and in no acute distress. Alert and oriented x3 HEAD: Atraumatic, normocephalic. EYES: Pupils equal round and reactive to light, extraocular movements intact, sclera anicteric, conjunctiva are normal. ENT: TMs normal, nares patent, oropharynx clear without exudates. Moist mucous membranes. No oral ulcerations or bleeding gums noted NECK: supple without lymphadenopathy. Trachea is central. No cervical or axillary lymphadenopathy noted. Carotids are 2+, JVD WNL LUNGS: Respiration seems nonlabored, no significant accessory muscle action noted. Breath sounds clear to auscultation bilaterally and equal noted. No wheezes rales or rhonchi noted. No significant dullness noted on percussion. CHEST: Palpation of the chest wall shows no significant chest wall tenderness. No other significant abnormalities noted. HEART: [place] [employer], No PSH, 1/6 JOSIE aortic area, 1/6 cespedes systolic murmur mitral area, no rubs, no gallops. ABDOMEN: Soft, no significant tenderness appreciated, normoactive bowel sounds. No guarding, no rebound. No rigidity noted . No masses appreciated. EXTREMITIES: Pedal pulses are 1-2+, no calf tenderness noted. No clubbing or cyanosis.trace to 1+ pedal edema noted NEUROLOGICAL: Focused neurological exam showed no significant neurologic deficit. Normal speech, no focal weakness appreciated. PSYCH: Normal mood, normal affect. Judgment and insight within normal limits. SKIN: No significant ecchymosis, rash, ulcerations or signs of pruritus noted. MUSCULOSKELETAL EXAM: No significant joint swelling noted. Results Laboratory Results: 01/23/17 05:18 01/23/17 05:18 01/23/17 01/23/17 05:18 05:18 WBC 5.2 RBC 4.19 L Hgb 14.1 Hct 41.4 MCV 99 H MCH 33.6 H MCHC 34.0 RDW 13.3 Plt Count 140 L Seg Neutrophils % 45.7 Lymphocytes % 34.6 Monocytes % 14.2 H Eosinophils % 4.1 Basophils % 1.4 Absolute Neutrophils 2.4 Absolute Lymphocytes 1.8 Absolute Monocytes 0.7 Absolute Eosinophils 0.2 Absolute Basophils 0.1 Sodium 135.3 L Potassium 4.4 Chloride 99 Carbon Dioxide 29 Anion Gap 7 BUN 13 Creatinine 0.97 Est GFR ( Amer) > 60 Est GFR (Non-Af Amer) > 60 Glucose 96 Calcium 9.0 01/21/17 23:00 Throat Throat Culture - Final NORMAL VAMSI 01/22/17 09:12 Nasophary (Mrsa Only) MRSA Surveillance Culture - Final NO MRSA RECOVERED 01/21/17 21:28 Clean Catch Midstream Urine Culture - Final NO GROWTH 2 DAYS 01/21/17 12:50 Stool - Stool - Final 01/21/17 12:50 Stool - Stool Stool Culture - Final C.albicans/C.dubliniensis 01/21/17 01/21/17 01/21/17 11:50 11:50 13:51 Creatine Kinase 74 58 CK-MB (CK-2) 1.49 Troponin I 0.021 01/21/17 01/21/17 01/21/17 13:51 21:05 21:05 Creatine Kinase 69 CK-MB (CK-2) 1.54 2.27 Troponin I 0.016 < 0.012 01/22/17 01/22/17 03:24 03:24 Creatine Kinase 67 CK-MB (CK-2) 2.59 Troponin I < 0.012 EKG Comments: Sinus rhythm with right bundle branch block pattern. Impressions: Abdomen/Pelvis CT 01/21/17 00:00 IMPRESSION: Right upper lobe nodule worrisome for malignancy. Consider PET-CT for followup. No focal acute infiltrates. Unremarkable CT the abdomen pelvis with oral contrast. Chest CT 01/21/17 00:00 IMPRESSION: Right upper lobe nodule worrisome for malignancy. Consider PET-CT for followup. No focal acute infiltrates. Unremarkable CT the abdomen pelvis with oral contrast. Assessment & Plan - Diagnosis (1) Paroxysmal atrial fibrillation Is this a current diagnosis for this admission?: Yes (2) Coronary artery disease Qualifiers: Coronary Disease-Associated Artery/Lesion type: unspecified vessel or lesion type [place] vs. transplanted heart: [place] heart Associated angina: angina presence unspecified Qualified Code(s): I25.10 - Atherosclerotic heart disease of [place] coronary artery without angina pectoris Is this a current diagnosis for this admission?: Yes (3) Fever Qualifiers: Fever type: unspecified Qualified Code(s): R50.9 - Fever, unspecified Is this a current diagnosis for this admission?: Yes (4) Hyperlipidemia Qualifiers: Hyperlipidemia type: unspecified Qualified Code(s): E78.5 - Hyperlipidemia , unspecified Is this a current diagnosis for this admission?: Yes (5) Hypertension Qualifiers: Hypertension type: essential hypertension Qualified Code(s): I10 - Essential (primary) hypertension Is this a current diagnosis for this admission?: Yes (6) Solitary pulmonary nodule Is this a current diagnosis for this admission?: Yes - Notes Notes: Fever: So far I am told blood cultures are negative. 2D echo did not show any definitive vegetation. Mild valvular regurgitations are noted. A small vegetation however could be missed. At this point would recommend further blood cultures and keeping blood cultures for up to 2 weeks to facilitate growth of fastidious organism. May consider transesophageal echocardiogram if no other cause is noted for fever. Coronary artery disease: Patient is status post bypass surgery a few years ago. In the past. Currently symptomatically stable. Paroxysmal atrial fibrillation: Today patient is in sinus rhythm. Continue chronic anticoagulation. Continue with rate control strategy. Hyperlipidemia: LDL goal is less than 70. Recommend statin therapy at least intermediate or high dose, of high potency status. Periodic lipid panel and liver panel is indicated. Patient to report any significant muscle discomfort or other side effects. Hypertension: Reasonably well controlled. Blood pressure goal in this patient is 135/85 or less. This was discussed with the patient. Currently blood pressure under reasonable control. Better medication for this patient are CATALINA inhibitor/ARB/beta shaheed etc. discussed side effects of uncontrolled hypertension and also severe hypotension. Solitary pulmonary nodule: Being evaluated by oncologist. - Time Time Spent: 30 to 50 Minutes - CODE STATUS was discussed, patient remains full code. Surrogate decision-maker unchanged. Multiple medical problems were addressed. More than 50% of the time spent coordinating care, discussing management plans with involved caregivers. Management plans discussed with involved personnels. Medical decision making was of moderate to high complexity , patient's has multiple comorbidities. Medications reviewed and adjusted accordingly: Yes
--- NOTE | 2017-01-23 16:47 | PDOC PROGRESS REPORT ---
Subjective Progress Note for:: 01/23/17 Subjective:: Patient still running low-grade fever. Patient claims that he had a episode of transient atrial fibrillation. However currently he is back in normal rhythm. 2D echocardiogram results were reviewed with the patient. LVEF was noted to be WNL. No significant valvular abnormalities noted. No definite vegetation noted of course a small vegetation cannot be ruled out. This was discussed with the patient. Physical Exam Vital Signs: Temp Pulse Resp BP Pulse Ox 99.0 F 88 18 112/67 96 01/23/17 15:52 01/23/17 15:52 01/23/17 15:52 01/23/17 15:52 01/23/17 15:52 Intake & Output 01/22/17 01/23/17 01/24/17 06:59 06:59 06:59 Intake Total 3121 2705 1000 Output Total 200 2428 5 Balance 2921 277 995 Weight 90.2 kg 89.4 kg Exam: GENERAL: well-nourished and in no acute distress. Alert and oriented x3 HEAD: Atraumatic, normocephalic. EYES: Pupils equal round and reactive to light, extraocular movements intact, sclera anicteric, conjunctiva are normal. ENT: TMs normal, nares patent, oropharynx clear without exudates. Moist mucous membranes. No oral ulcerations or bleeding gums noted NECK: supple without lymphadenopathy. Trachea is central. No cervical or axillary lymphadenopathy noted. Carotids are 2+, JVD WNL LUNGS: Respiration seems nonlabored, no significant accessory muscle action noted. Breath sounds clear to auscultation bilaterally and equal noted. No wheezes rales or rhonchi noted. No significant dullness noted on percussion. CHEST: Palpation of the chest wall shows no significant chest wall tenderness. No other significant abnormalities noted. HEART: [place] [employer] DES[employer], No PSH, 1/6 JOSIE aortic area, 1/6 cespedes systolic murmur mitral area, no rubs, no gallops. ABDOMEN: Soft, no significant tenderness appreciated, normoactive bowel sounds. No guarding, no rebound. No rigidity noted . No masses appreciated. EXTREMITIES: Pedal pulses are 1-2+, no calf tenderness noted. No clubbing or cyanosis. trace pedal edema noted NEUROLOGICAL: Focused neurological exam showed no significant neurologic deficit. Normal speech, no focal weakness appreciated. PSYCH: Normal mood, normal affect. Judgment and insight within normal limits. SKIN: No significant ecchymosis, rash, ulcerations or signs of pruritus noted. MUSCULOSKELETAL EXAM: No significant joint swelling noted. Results Laboratory Results: 01/23/17 05:18 01/23/17 05:18 01/23/17 01/23/17 05:18 05:18 WBC 5.2 RBC 4.19 L Hgb 14.1 Hct 41.4 MCV 99 H MCH 33.6 H MCHC 34.0 RDW 13.3 Plt Count 140 L Seg Neutrophils % 45.7 Lymphocytes % 34.6 Monocytes % 14.2 H Eosinophils % 4.1 Basophils % 1.4 Absolute Neutrophils 2.4 Absolute Lymphocytes 1.8 Absolute Monocytes 0.7 Absolute Eosinophils 0.2 Absolute Basophils 0.1 Sodium 135.3 L Potassium 4.4 Chloride 99 Carbon Dioxide 29 Anion Gap 7 BUN 13 Creatinine 0.97 Est GFR ( Amer) > 60 Est GFR (Non-Af Amer) > 60 Glucose 96 Calcium 9.0 01/21/17 23:00 Throat Throat Culture - Final NORMAL VAMSI 01/22/17 09:12 Nasophary (Mrsa Only) MRSA Surveillance Culture - Final NO MRSA RECOVERED 01/21/17 21:28 Clean Catch Midstream Urine Culture - Final NO GROWTH 2 DAYS 01/21/17 12:50 Stool - Stool - Final 01/21/17 12:50 Stool - Stool Stool Culture - Final C.albicans/C.dubliniensis 01/21/17 01/21/17 01/21/17 11:50 11:50 13:51 Creatine Kinase 74 58 CK-MB (CK-2) 1.49 Troponin I 0.021 01/21/17 01/21/17 01/21/17 13:51 21:05 21:05 Creatine Kinase 69 CK-MB (CK-2) 1.54 2.27 Troponin I 0.016 < 0.012 01/22/17 01/22/17 03:24 03:24 Creatine Kinase 67 CK-MB (CK-2) 2.59 Troponin I < 0.012 Impressions: Abdomen/Pelvis CT 01/21/17 00:00 IMPRESSION: Right upper lobe nodule worrisome for malignancy. Consider PET-CT for followup. No focal acute infiltrates. Unremarkable CT the abdomen pelvis with oral contrast. Chest CT 09/07/17 00:00 IMPRESSION: Right upper lobe nodule worrisome for malignancy. Consider PET-CT for followup. No focal acute infiltrates. Unremarkable CT the abdomen pelvis with oral contrast. Assessment & Plan - Diagnosis (1) Paroxysmal atrial fibrillation Is this a current diagnosis for this admission?: Yes (2) Coronary artery disease Qualifiers: Coronary Disease-Associated Artery/Lesion type: unspecified vessel or lesion type [place] vs. transplanted heart: [place] heart Associated angina: angina presence unspecified Qualified Code(s): I25.10 - Atherosclerotic heart disease of [place] coronary artery without angina pectoris Is this a current diagnosis for this admission?: Yes (3) Fever Qualifiers: Fever type: unspecified Qualified Code(s): R50.9 - Fever, unspecified Is this a current diagnosis for this admission?: Yes (4) Hyperlipidemia Qualifiers: Hyperlipidemia type: unspecified Qualified Code(s): E78.5 - Hyperlipidemia , unspecified Is this a current diagnosis for this admission?: Yes (5) Hypertension Qualifiers: Hypertension type: essential hypertension Qualified Code(s): I10 - Essential (primary) hypertension Is this a current diagnosis for this admission?: Yes (6) Solitary pulmonary nodule Is this a current diagnosis for this admission?: Yes - Notes Notes: Fever: Patient currently has low-grade fever. 2D echo did not show any definitive vegetation. Mild valvular regurgitations are noted. A small vegetation however could be missed. At this point would recommend further blood cultures and keeping blood cultures for up to 2 weeks to facilitate growth of fastidious organism. May consider transesophageal echocardiogram if no other cause is noted for fever. Coronary artery disease: Patient is status post bypass surgery a few years ago. In the past. Currently symptomatically stable. Paroxysmal atrial fibrillation: Short episode of transient atrial fibrillation noted. Continue chronic anticoagulation. Continue with rate control strategy. Have placed patient on Ranexa 500 mg p.o. twice daily. May consider increasing the dose and on replacing with sotalol if there is more recurrences. Patient seems to tolerate atrial fibrillation episodes rather well..Hyperlipidemia: LDL goal is less than 70. Continue statin therapy at least intermediate or high dose, of high potency status. Periodic lipid panel and liver panel is indicated. Patient to report any significant muscle discomfort or other side effects. Hypertension: Reasonably well controlled. Blood pressure goal in this patient is 135/85 or less. This was discussed with the patient. Currently blood pressure under reasonable control. Better medication for this patient are CATALINA inhibitor/ARB/beta shaheed etc. discussed side effects of uncontrolled hypertension and also severe hypotension. Solitary pulmonary nodule: Being evaluated by oncologist. Patient also noted to have hilar lymphadenopathy. - Time Time with patient: 15-25 minutes - CODE STATUS was discussed, patient remains full code. Surrogate decision-maker unchanged. Multiple medical problems were addressed. More than 50% of the time spent coordinating care, discussing management plans with involved caregivers. Management plans discussed with involved personnels. Medical decision making was of moderate to high complexity , patient's has multiple comorbidities. Patient seems stable from cardiac standpoint. Will sign off. Please reconsult if needed. Medications reviewed and adjusted accordingly: Yes
[2017-01-23] MEDS: CETIRIZINE 5 MG TABLET PO SCH (17:09)
[2017-01-23] MEDS: ATORVASTATIN CALCIUM 40 MG TABLET PO SCH (22:28)
[2017-01-24] MEDS: CEFEPIME 1 GM/D5W RTU 1 GM/50 ML RTUPB IV SCH ×3 (00:49→23:48)
[2017-01-24] MEDS: NORMAL SALINE 1000 ML 1,000 ML IV PRN ×2 (04:09→16:51)
[2017-01-24 05:13] LABS: ANION GAP 8 (5-19); BLOOD UREA NITROGEN 13 mg/dL (7-20); CALCIUM 8.7 mg/dL (8.4-10.2); CARBON DIOXIDE 25 mmol/L (22-30); CHLORIDE 102 mmol/L (98-107); CREATININE RESULT 0.96 mg/dL (0.52-1.25); GLUCOSE 90 mg/dL (75-110); POTASSIUM 4.3 mmol/L (3.6-5.0); SODIUM 135.3 mmol/L (137-145)
[2017-01-24] MEDS: LANSOPRAZOLE 15 MG TAB.RAP.DR PO SCH ×2 (05:26→16:45)
[2017-01-24] MEDS: DOXYCYCLINE HYCLATE 100 MG TABLET PO SCH ×2 (10:34→22:41)
[2017-01-24] MEDS: APIXABAN 5 MG TABLET PO SCH ×2 (10:34→22:41)
[2017-01-24] MEDS: RANOLAZINE 500 MG TAB.SR.12H PO SCH ×2 (10:34→22:41)
[2017-01-24] MEDS: ASPIRIN 81 MG TABLET, ENT COATED PO SCH (10:34)
[2017-01-24] MEDS: METOPROLOL TARTRATE 25 MG TABLET PO SCH ×2 (10:35→22:41)
--- NOTE | 2017-01-24 15:55 | PDOC PROGRESS REPORT ---
Subjective Progress Note for:: 01/24/17 Subjective:: He was very bedside, he was admitted for fever, he had episode of paroxysmal atrial fibrillation earlier today. Physical Exam Vital Signs: Temp Pulse Resp BP Pulse Ox 98.5 F 64 18 128/72 H 97 01/24/17 11:55 01/24/17 14:00 01/24/17 11:55 01/24/17 11:55 01/24/17 11:55 Intake & Output 01/23/17 01/24/17 01/25/17 06:59 06:59 06:59 Intake Total 2705 2891 1275 Output Total 2428 5 800 Balance 277 2886 475 Weight 89.4 kg General appearance: PRESENT: no acute distress Eye exam: PRESENT: PERRLA Cardiovascular exam: PRESENT: +S1, +S2 GI/Abdominal exam: PRESENT: soft Neurological exam: PRESENT: alert Results Laboratory Results: 01/23/17 05:18 01/24/17 04:00 01/24/17 04:00 Sodium 135.3 L Potassium 4.3 Chloride 102 Carbon Dioxide 25 Anion Gap 8 BUN 13 Creatinine 0.96 Est GFR ( Amer) > 60 Est GFR (Non-Af Amer) > 60 Glucose 90 Calcium 8.7 01/21/17 23:00 Throat Throat Culture - Final NORMAL VAMSI 01/22/17 09:12 Nasophary (Mrsa Only) MRSA Surveillance Culture - Final NO MRSA RECOVERED 01/21/17 01/21/17 01/21/17 11:50 11:50 13:51 Creatine Kinase 74 58 CK-MB (CK-2) 1.49 Troponin I 0.021 01/21/17 01/21/17 01/21/17 13:51 21:05 21:05 Creatine Kinase 69 CK-MB (CK-2) 1.54 2.27 Troponin I 0.016 < 0.012 01/22/17 01/22/17 03:24 03:24 Creatine Kinase 67 CK-MB (CK-2) 2.59 Troponin I < 0.012 Impressions: Abdomen/Pelvis CT 01/21/17 00:00 IMPRESSION: Right upper lobe nodule worrisome for malignancy. Consider PET-CT for followup. No focal acute infiltrates. Unremarkable CT the abdomen pelvis with oral contrast. Chest CT 01/21/17 00:00 IMPRESSION: Right upper lobe nodule worrisome for malignancy. Consider PET-CT for followup. No focal acute infiltrates. Unremarkable CT the abdomen pelvis with oral contrast. Assessment & Plan - Diagnosis (1) Atrial flutter Qualifiers: Atrial flutter type: unspecified Qualified Code(s): I48.92 - Unspecified atrial flutter Is this a current diagnosis for this admission?: Yes (2) Coronary artery disease Qualifiers: Coronary Disease-Associated Artery/Lesion type: unspecified vessel or lesion type [place] vs. transplanted heart: [place] heart Associated angina: angina presence unspecified Qualified Code(s): I25.10 - Atherosclerotic heart disease of [place] coronary artery without angina pectoris Is this a current diagnosis for this admission?: Yes (3) Hyperlipidemia Qualifiers: Hyperlipidemia type: unspecified Qualified Code(s): E78.5 - Hyperlipidemia , unspecified Is this a current diagnosis for this admission?: Yes (4) Hypertension Qualifiers: Hypertension type: essential hypertension Qualified Code(s): I10 - Essential (primary) hypertension Is this a current diagnosis for this admission?: Yes (5) Impaired fasting glucose Is this a current diagnosis for this admission?: Yes (6) Solitary pulmonary nodule Is this a current diagnosis for this admission?: Yes
[2017-01-24] MEDS: CETIRIZINE 5 MG TABLET PO SCH (18:27)
[2017-01-24] MEDS: ATORVASTATIN CALCIUM 40 MG TABLET PO SCH (22:41)
[2017-01-25] MEDS: LANSOPRAZOLE 15 MG TAB.RAP.DR PO SCH ×2 (05:59→16:47)
--- NOTE | 2017-01-25 08:19 | Physician Advisory Note ---
Physician Advisor ProgressNote .: Pursuant to the plan for [facility], I have reviewed the medical record for this patient. Physician Advisor Statement: Please consider documentin. "Suspected Bacterial Infection of Undetermined Etiology" - "fever of unknown origin" gets coded as just generic "fever", which could be a passing mild virus; it doesn't explain why the need for hospitalization & a bunch of workup and abx. 2. "Acute Hyponatremia, suspect due to ___" [?lung CA, intravascular volume depletion, ...] 3. STatus: A. "Inpatient status" appropriate, B. "I am concerned because " / "I was/am concerned for potential _" - Always best to start w/Observation when unsure, but in this case, pt had clearly failed reasonable outpatient management, so Inpatient appropriate from time of H&P. Thanks! CK
[2017-01-25] MEDS ORDERED: ACETAMINOPHEN 325 MG TABLET PO PRN (08:30)
[2017-01-25] MEDS ORDERED: ONDANSETRON HCL INJ/PF 4 MG/2 ML SDV IV PRN (08:30)
--- NOTE | 2017-01-25 09:07 | PDOC PROGRESS REPORT ---
Subjective Progress Note for:: 01/25/17 Subjective:: Patient is currently doing well. Patient's have a no fever except low-grade 99 Patients denied any night sweats denied any chest pain Patient have episode of the rapid A. fib and adjust the medications by cardiology currently doing well Patient's echocardiogram is all stable Physical Exam Vital Signs: Temp Pulse Resp BP Pulse Ox 98.4 F 83 18 130/63 H 96 01/25/17 03:27 01/25/17 07:00 01/25/17 03:27 01/25/17 03:27 01/25/17 03:27 Intake & Output 01/24/17 01/25/17 01/26/17 06:59 06:59 06:59 Intake Total 2891 3240 Output Total 5 800 Balance 2886 2440 Weight 88.5 kg General appearance: PRESENT: no acute distress, well-developed, well-nourished Head exam: PRESENT: atraumatic, normocephalic Eye exam: PRESENT: conjunctiva pink, EOMI, PERRLA. ABSENT: scleral icterus Ear exam: PRESENT: normal external ear exam Mouth exam: PRESENT: moist, tongue midline Neck exam: PRESENT: full ROM. ABSENT: carotid bruit, JVD, lymphadenopathy, thyromegaly Respiratory exam: PRESENT: clear to auscultation mitch Cardiovascular exam: PRESENT: RRR. ABSENT: diastolic murmur, rubs, systolic murmur Pulses: PRESENT: normal dorsalis pedis pul, +2 pedal pulses bilateral Vascular exam: PRESENT: normal capillary refill GI/Abdominal exam: PRESENT: normal bowel sounds, soft. ABSENT: distended, guarding, mass, organolmegaly, rebound, tenderness Rectal exam: PRESENT: deferred Neurological exam: PRESENT: alert, awake, oriented to person, oriented to place , oriented to time, oriented to situation, CN II-XII grossly intact. ABSENT: motor sensory deficit Psychiatric exam: PRESENT: appropriate affect, normal mood. ABSENT: homicidal ideation, suicidal ideation Skin exam: PRESENT: dry, intact, warm. ABSENT: cyanosis, rash Results Laboratory Results: 01/23/17 05:18 01/24/17 04:00 01/21/17 01/21/17 01/21/17 11:50 11:50 13:51 Creatine Kinase 74 58 CK-MB (CK-2) 1.49 Troponin I 0.021 01/21/17 01/21/17 01/21/17 13:51 21:05 21:05 Creatine Kinase 69 CK-MB (CK-2) 1.54 2.27 Troponin I 0.016 < 0.012 01/22/17 01/22/17 03:24 03:24 Creatine Kinase 67 CK-MB (CK-2) 2.59 Troponin I < 0.012 Impressions: Abdomen/Pelvis CT 01/21/17 00:00 IMPRESSION: Right upper lobe nodule worrisome for malignancy. Consider PET-CT for followup. No focal acute infiltrates. Unremarkable CT the abdomen pelvis with oral contrast. Chest CT 01/21/17 00:00 IMPRESSION: Right upper lobe nodule worrisome for malignancy. Consider PET-CT for followup. No focal acute infiltrates. Unremarkable CT the abdomen pelvis with oral contrast. Assessment & Plan - Diagnosis (1) Fever Qualifiers: Fever type: unspecified Qualified Code(s): R50.9 - Fever, unspecified Is this a current diagnosis for this admission?: Yes Plan: Unclear etiology currently all stable will continues to p.o. doxycycline (2) Coronary artery disease Qualifiers: Coronary Disease-Associated Artery/Lesion type: unspecified vessel or lesion type [place] vs. transplanted heart: [place] heart Associated angina: angina presence unspecified Qualified Code(s): I25.10 - Atherosclerotic heart disease of [place] coronary artery without angina pectoris Is this a current diagnosis for this admission?: Yes Plan: Patient recently see the [facility] cardiology and the patient's all the test was stable and according to the patient (3) Hypertension Qualifiers: Hypertension type: essential hypertension Qualified Code(s): I10 - Essential (primary) hypertension Is this a current diagnosis for this admission?: Yes Plan: Continues to current medications (4) Atrial flutter Qualifiers: Atrial flutter type: unspecified Qualified Code(s): I48.92 - Unspecified atrial flutter Is this a current diagnosis for this admission?: Yes Plan: Continues on Lopressor 25 mg p.o. twice a day and continues to Eliquis (5) Hyperlipidemia Qualifiers: Hyperlipidemia type: unspecified Qualified Code(s): E78.5 - Hyperlipidemia , unspecified Is this a current diagnosis for this admission?: Yes Plan: Continues current medications (6) Impaired fasting glucose Is this a current diagnosis for this admission?: Yes Plan: Put the patient on a sliding scale (7) Solitary pulmonary nodule Is this a current diagnosis for this admission?: Yes Plan: Follow outpatients Dr. Thompson - Time Time Spent with patient: 15-24 minutes Medications reviewed and adjusted accordingly: Yes Anticipated discharge: Home - Inpatient Certification Medical Necessity: Need Close Monitoring Due to Risk of Patient Decompensation Post Hospital Care: D/C Bi Consultant Documentation - Plan Summary Plan Summary: Well so far so all cultures negative will stop the IV antibiotic and IV fluid and to keep a p.o. doxycycline The patient's remained afebrile we will discharge tomorrow with the p.o. doxycycline and follow outpatients of the pending labs
[2017-01-25] MEDS: DOXYCYCLINE HYCLATE 100 MG TABLET PO SCH ×2 (09:35→22:22)
[2017-01-25] MEDS: APIXABAN 5 MG TABLET PO SCH ×2 (09:36→22:22)
[2017-01-25] MEDS: ASPIRIN 81 MG TABLET, ENT COATED PO SCH (09:36)
[2017-01-25] MEDS: METOPROLOL TARTRATE 25 MG TABLET PO SCH ×2 (09:36→22:22)
[2017-01-25] MEDS: RANOLAZINE 500 MG TAB.SR.12H PO SCH ×2 (10:36→22:22)
[2017-01-25 15:09] LABS: LYME DISEASE IGG AND IGM AB <0.91 ISR (0.00-0.90)
[2017-01-25] MEDS: CETIRIZINE 5 MG TABLET PO SCH (17:36)
[2017-01-25] MEDS: ATORVASTATIN CALCIUM 40 MG TABLET PO SCH (22:22)
[2017-01-26] MEDS: LANSOPRAZOLE 15 MG TAB.RAP.DR PO SCH (06:19)
[2017-01-26 07:14] LABS: ABSOLUTE BASOPHILS # (AUTO) 0.1 10^3/uL (0.0-0.2); ABSOLUTE EOSINOPHILS # (AUTO) 0.7 10^3/uL (0.0-0.6); ABSOLUTE LYMPHOCYTES (AUTO) 1.9 10^3/uL (0.5-4.7); ABSOLUTE MONOCYTES (AUTO) 0.8 10^3/uL (0.1-1.4); ABSOLUTE NEUT (AUTO) 3.3 10^3/uL (1.7-8.2); BASOPHILS % (AUTO) 1.5 % (0-2); EOSINOPHILS % (AUTO) 10.7 % (0-6); HEMATOCRIT 41.1 % (37.9-51.0); HEMOGLOBIN 14.2 g/dL (13.5-17.0); HGB HCT DIFFERENCE 1.5; LYMPHOCYTES % (AUTO) 27.6 % (13-45); MEAN CORPUSCULAR HEMOGLOBIN 33.7 pg (27.0-33.4); MEAN CORPUSCULAR HGB CONC 34.5 g/dL (32.0-36.0); MEAN CORPUSCULAR VOLUME 98 fl (80-97); MONOCYTES % (AUTO) 11.6 % (3-13); RED BLOOD COUNT 4.21 10^6/uL (4.35-5.55); SEGMENTED NEUTROPHILS % (AUTO) 48.6 % (42-78); WHITE BLOOD COUNT 6.9 10^3/uL (4.0-10.5)
[2017-01-26 07:28] LABS: ANION GAP 9 (5-19); BLOOD UREA NITROGEN 12 mg/dL (7-20); CALCIUM 9.4 mg/dL (8.4-10.2); CARBON DIOXIDE 31 mmol/L (22-30); CHLORIDE 98 mmol/L (98-107); CREATININE RESULT 0.92 mg/dL (0.52-1.25); GLUCOSE 98 mg/dL (75-110); POTASSIUM 4.5 mmol/L (3.6-5.0)
--- NOTE | 2017-01-26 08:51 | PDOC DISCHARGE SUMMARY ---
General - Admit/Disc Date/PCP Admission Date/Primary Care Provider: 01/21/17 11:20 FREDO CORRALES MD Discharge Date: 01/26/17 - Discharge Diagnosis (1) Fever Is this a current diagnosis for this admission?: Yes Summary: Unclear etiology continues to doxycycline for another 10 daysPatient is currently afebrile (2) Coronary artery disease Is this a current diagnosis for this admission?: Yes Summary: Currently all stable (3) Hypertension Is this a current diagnosis for this admission?: Yes Summary: Continues to metoprolol (4) Atrial flutter Is this a current diagnosis for this admission?: Yes Summary: Patient no episode of the rapid ventricular response and currently on a beta- shaheed and Eliquis currently doing well (5) Hyperlipidemia Is this a current diagnosis for this admission?: Yes (6) Impaired fasting glucose Is this a current diagnosis for this admission?: Yes Summary: Stable (7) Solitary pulmonary nodule Is this a current diagnosis for this admission?: Yes Summary: Follow-up outpatient oncology for PET scan - Additional Information Resuscitation Status: Full Code Discharge Diet: Cardiac Discharge Activity: Activity As Tolerated Home Medications: Apixaban [Eliquis] 5 mg PO Q12 01/21/17 Aspirin [Ecotrin 81 mg EC Tablet] 81 mg PO DAILY 01/21/17 Atorvastatin Calcium [Lipitor 40 mg Tablet] 40 mg PO QHS 01/21/17 Levocetirizine Dihydrochloride [Xyzal] 5 mg PO QPM 01/21/17 Losartan Potassium [Cozaar 25 mg Tablet] 25 mg PO DAILY 01/21/17 Metoprolol Tartrate [Lopressor 25 mg Tablet] 25 mg PO Q12 01/21/17 Multivitamin [Daily Multiple Vitamin] 1 tab PO DAILY 01/21/17 [place]-3 Fatty Acids [Fish Oil Concentrate] 1,000 mg PO QHS 01/21/17 Doxycycline Hyclate [Vibramycin 100 mg Tablet] 100 mg PO Q12 #20 tablet History of Present Illness History of Present Illness: BRENNAN NEWBERRY is a 71 year old male This 71-year-old male with a history of the coronary artery disease status post bypass with the history of the atrial flutter [facility] of the hypertensions and hyperlipidemia came to my office couple of days back with a complaint of fever 100.4 and not feeling well with complaints some urinary frequency Patients denied any cough no chest painDenied any nausea no vomiting Patient at the times to do blood work including the CBC Chem-12In the urine culture blood culture and was all negative Patient's chest x-ray was also negative and influenza test also negative to Since prostate exam was also negative for any infections Patient was empirically given the Levaquin until the cultures back Patients denied any headache no neck stiffness Patient is followed today in office with still have 100.4 fever and still not feeling well With the discussed with the patient and the patient recently see his mother in a nursing homes with his mother have a history of C. difficile colitis in the past Patient's complaint was some mild loose stool but other than that no other symptoms At this point decided to patient admit for this fever of unknown origin for further evaluations Hospital Course Hospital Course: This is a 71-year-old male admitted to the hospital with fever of unknown originAnd patient initial blood cultures urine cultures all negativePatient also underwent for the CT chest and CT abdomen and pelvis which all negative exceptPatient have a some pulmonary nodules Patient's Lyme titer is also negative Patient's otherwise initially put on IV cefepime and add in the doxycycline More than 72 hours patient does not have a no fever and no night sweats Patient is otherwise denied any headache no rash Patient's p.o. intake is good Patient have an echocardiogram was done and negative for any vegetations Patient's otherwise remain afebrile patient seen by the e commerce marketing manager for A. fib and patient otherwise remained stable and discharged home with the stable conditions Patient also seen by oncology and follow outpatient pet scan scans Physical Exam Vital Signs: Temp Pulse Resp BP Pulse Ox 98.7 F 74 16 116/65 94 01/26/17 03:20 01/26/17 07:00 01/26/17 03:20 01/26/17 03:20 01/26/17 03:20 Intake & Output 01/25/17 01/26/17 01/27/17 06:59 06:59 06:59 Intake Total 3240 1360 Output Total 800 1200 Balance 2440 160 Weight 88.5 kg 88.5 kg General appearance: PRESENT: no acute distress, well-developed, well-nourished Head exam: PRESENT: atraumatic, normocephalic Eye exam: PRESENT: conjunctiva pink, EOMI, PERRLA. ABSENT: scleral icterus Ear exam: PRESENT: normal external ear exam Mouth exam: PRESENT: moist, tongue midline Neck exam: PRESENT: full ROM. ABSENT: carotid bruit, JVD, lymphadenopathy, thyromegaly Respiratory exam: PRESENT: clear to auscultation mitch Cardiovascular exam: PRESENT: RRR. ABSENT: diastolic murmur, rubs, systolic murmur Pulses: PRESENT: normal dorsalis pedis pul, +2 pedal pulses bilateral Vascular exam: PRESENT: normal capillary refill GI/Abdominal exam: PRESENT: normal bowel sounds, soft. ABSENT: distended, guarding, mass, organolmegaly, rebound, tenderness Rectal exam: PRESENT: deferred Neurological exam: PRESENT: alert, awake, oriented to person, oriented to place , oriented to time, oriented to situation, CN II-XII grossly intact. ABSENT: motor sensory deficit Psychiatric exam: PRESENT: appropriate affect, normal mood. ABSENT: homicidal ideation, suicidal ideation Skin exam: PRESENT: dry, intact, warm. ABSENT: cyanosis, rash Results Laboratory Results: 01/26/17 06:49 01/26/17 06:49 01/26/17 01/26/17 06:49 06:49 WBC 6.9 RBC 4.21 L Hgb 14.2 Hct 41.1 MCV 98 H MCH 33.7 H MCHC 34.5 RDW 13.0 Plt Count 214 Seg Neutrophils % 48.6 Lymphocytes % 27.6 Monocytes % 11.6 Eosinophils % 10.7 H Basophils % 1.5 Absolute Neutrophils 3.3 Absolute Lymphocytes 1.9 Absolute Monocytes 0.8 Absolute Eosinophils 0.7 H Absolute Basophils 0.1 Sodium 138.0 Potassium 4.5 Chloride 98 Carbon Dioxide 31 H Anion Gap 9 BUN 12 Creatinine 0.92 Est GFR ( Amer) > 60 Est GFR (Non-Af Amer) > 60 Glucose 98 Calcium 9.4 01/21/17 01/21/17 01/21/17 11:50 11:50 13:51 Creatine Kinase 74 58 CK-MB (CK-2) 1.49 Troponin I 0.021 01/21/17 01/21/17 01/21/17 13:51 21:05 21:05 Creatine Kinase 69 CK-MB (CK-2) 1.54 2.27 Troponin I 0.016 < 0.012 01/22/17 01/22/17 03:24 03:24 Creatine Kinase 67 CK-MB (CK-2) 2.59 Troponin I < 0.012 Impressions: Abdomen/Pelvis CT 01/21/17 00:00 IMPRESSION: Right upper lobe nodule worrisome for malignancy. Consider PET-CT for followup. No focal acute infiltrates. Unremarkable CT the abdomen pelvis with oral contrast. Chest CT 01/21/17 00:00 IMPRESSION: Right upper lobe nodule worrisome for malignancy. Consider PET-CT for followup. No focal acute infiltrates. Unremarkable CT the abdomen pelvis with oral contrast. Plan Time Spent: Greater than 30 Minutes - Patient is discharged home with the p.o. antibiotic patient still some of the lab is still pending we will follow outpatient Discussed with the patient and the about the CONDITION AND THAT IS REPORTS Follow-up outpatients oncology for a PET scan
[2017-01-26 09:30] VITALS: BP 128/65
[2017-01-26 15:38] LABS: ROCKY MTN SPOTTED FEV IGG EIA Positive (Negative)
[2017-01-27 05:40] LABS: QUANTIFERON TB ANTIGEN VALUE 1.39 IU/mL (.); QUANTIFERON TB NIL VALUE 1.35 IU/mL (.)
--- NOTE | 2017-01-29 09:56 | XCELERA REPORT ---
[address] [address] Transthoracic Echocardiogram Report Name: BRENNAN NEWBERRY Age: 71 yrs Gender: Male : 1945 Patient Status: Inpatient Patient Location: [address] [place] [address] Study Date: 01/22/2017 01:51 PM Height: 65 in Weight: 198 lb BSA: 2.0 m2 Procedure: A complete two-dimensional transthoracic echocardiogram was performed (2D, M-mode, spectral and color flow Doppler). The study was technically adequate with some images being suboptimal in quality. Reason For Study: HX: HEART MURMUR, FEVER Ordering Physician: FREDO CORRALES Performed By: Devyn Albright Interpretation Summary Left ventricular systolic function is low normal. There is borderline concentric left ventricular hypertrophy. The left ventricle is grossly normal size. Doppler measurements suggest pseudonormalized left ventricular relaxation, which is associated with grade II/IV or mild to moderate diastolic dysfunction Wall motion cannot be accurately commented on, but no definite regional wall motion abnormalities noted. The right ventricle is mildly dilated. The right atrium is borderline dilated. The left atrium is mildly dilated. There is no mitral valve stenosis. There is a mild amount of mitral regurgitation No aortic regurgitation is present. There is no aortic valve stenosis There is a mild amount of tricuspid regurgitation There is mild pulmonary hypertension by echo Right ventricular systolic pressure is estimated to be elevated at 30- 40mmHg. Minimal pericardial effusion. No definite vegetations noted but if clinical suspicion is high, then consider SAVANNA and multiple blood cultures. MMode/2D Measurements & Calculations RVDd: 3.2 cm LVIDd: 5.5 cm FS: 21.1 % Ao root diam: 3.5 cm IVSd: 0.89 cm LVIDs: 4.3 cm EDV(Teich): 144.4 ml LVPWd: 0.89 cm ESV(Teich): 83.2 ml Ao root area: 9.8 cm2 EF(Teich): 42.4 % LA dimension: 4.3 cm Doppler Measurements & Calculations MV E max armando: MV P1/2t max armando: Ao V2 max: LV V1 max P.7 cm/sec 75.3 cm/sec 130.3 cm/sec 5.8 mmHg MV A max armando: MV P1/2t: 53.9 msec Ao max PG: LV V1 max: 96.6 cm/sec 6.8 mmHg 120.3 cm/sec MV E/A: 0.75 MVA(P1/2t): 4.1 cm2 MV dec slope: 409.1 cm/sec2 PA V2 max: PI end-d armando: TR max armando: RAP systole: 75.5 cm/sec 52.1 cm/sec 243.1 cm/sec 10.0 mmHg PA max PG: TR max P.3 mmHg 23.6 mmHg RVSP(TR): 33.6 mmHg Left Ventricle The left ventricle is grossly normal size. There is borderline concentric left ventricular hypertrophy. The Ejection Fraction estimate is 50-55%. Left ventricular systolic function is low normal. Doppler measurements suggest pseudonormalized left ventricular relaxation, which is associated with grade II/IV or mild to moderate diastolic dysfunction. Wall motion cannot be accurately commented on, but no definite regional wall motion abnormalities noted. Right Ventricle The right ventricle is mildly dilated. There is normal right ventricular wall thickness. The right ventricular systolic function is normal. Atria The right atrium is borderline dilated. The left atrium is mildly dilated. Interarterial septum not well visualized and not well dopplered. Cannot comment on ASD/PFO presence. Mitral Valve The mitral valve leaflets are sclerotic, but show no functional abnormalities. There is no mitral valve stenosis. There is a mild amount of mitral regurgitation. Aortic Valve The aortic valve is sclerotic, but shows no functional abnormality. There is no aortic valve stenosis. No aortic regurgitation is present. Tricuspid Valve The tricuspid valve is not well visualized, but is grossly normal. There is no tricuspid stenosis. There is a mild amount of tricuspid regurgitation. There is mild pulmonary hypertension by echo. Right ventricular systolic pressure is estimated to be elevated at 30-40mmHg. Pulmonic Valve The pulmonic valve is not well visualized. Great Vessels The aortic root is not well visualized but is probably normal size. The inferior vena cava appeared normal and decreased > 50% with respiration (RAP 5-10 mmHg). Effusions Minimal pericardial effusion. Incidental Findings No definite vegetations noted but if clinical suspicion is high, then consider SAVANNA and multiple blood cultures. : FREDO CORRALES > Eric Borjas
--- NOTE | 2017-02-24 09:26 | PDOC PROGRESS REPORT ---
Subjective Progress Note for:: 02/24/17 Subjective:: Since the dictations for the patient's quary With fever still unclear etiology so diagnosis fever of unknown origin Physical Exam Vital Signs: Temp Pulse Resp BP Pulse Ox 98.3 F 59 L 19 128/65 H 94 01/26/17 07:40 01/26/17 07:40 01/26/17 07:40 01/26/17 07:40 01/26/17 07:40 Results Laboratory Results: 01/26/17 06:49 01/26/17 06:49 01/21/17 01/21/17 01/21/17 11:50 11:50 13:51 Creatine Kinase 74 58 CK-MB (CK-2) 1.49 Troponin I 0.021 01/21/17 01/21/17 01/21/17 13:51 21:05 21:05 Creatine Kinase 69 CK-MB (CK-2) 1.54 2.27 Troponin I 0.016 < 0.012 01/22/17 01/22/17 03:24 03:24 Creatine Kinase 67 CK-MB (CK-2) 2.59 Troponin I < 0.012 Impressions: Abdomen/Pelvis CT 01/21/17 00:00 IMPRESSION: Right upper lobe nodule worrisome for malignancy. Consider PET-CT for followup. No focal acute infiltrates. Unremarkable CT the abdomen pelvis with oral contrast. Chest CT 01/21/17 00:00 IMPRESSION: Right upper lobe nodule worrisome for malignancy. Consider PET-CT for followup. No focal acute infiltrates. Unremarkable CT the abdomen pelvis with oral contrast. Assessment & Plan - Diagnosis (1) Fever Qualifiers: Fever type: unspecified Qualified Code(s): R50.9 - Fever, unspecified Is this a current diagnosis for this admission?: Yes (2) Coronary artery disease Qualifiers: Coronary Disease-Associated Artery/Lesion type: unspecified vessel or lesion type [place] vs. transplanted heart: [place] heart Associated angina: angina presence unspecified Qualified Code(s): I25.10 - Atherosclerotic heart disease of [place] coronary artery without angina pectoris Is this a current diagnosis for this admission?: Yes (3) Hypertension Qualifiers: Hypertension type: essential hypertension Qualified Code(s): I10 - Essential (primary) hypertension Is this a current diagnosis for this admission?: Yes (4) Atrial flutter Qualifiers: Atrial flutter type: unspecified Qualified Code(s): I48.92 - Unspecified atrial flutter Is this a current diagnosis for this admission?: Yes (5) Hyperlipidemia Qualifiers: Hyperlipidemia type: unspecified Qualified Code(s): E78.5 - Hyperlipidemia , unspecified Is this a current diagnosis for this admission?: Yes (6) Impaired fasting glucose Is this a current diagnosis for this admission?: Yes (7) Solitary pulmonary nodule Is this a current diagnosis for this admission?: Yes
== END 2017-01-26 10:37 | disposition home or self-care (01) | DRG 864 ==
LOC: 5 11:08 → OBSVTOIN 11:20
PROVIDERS: ADMIT Family Medicine; ATTEND Family Medicine
DX: R50.9 Fever, unspecified (principal); I48.92 Unspecified atrial flutter; E87.1 Hypo-osmolality and hyponatremia; R10.9 Unspecified abdominal pain; I25.10 Atherosclerotic heart disease of native coronary artery without angina pectoris; I10 Essential (primary) hypertension; E78.5 Hyperlipidemia, unspecified; R73.01 Impaired fasting glucose; R91.1 Solitary pulmonary nodule; I48.0 Paroxysmal atrial fibrillation; Z95.1 Presence of aortocoronary bypass graft; Z79.82 Long term (current) use of aspirin; Z79.51 Long term (current) use of inhaled steroids; Z79.52 Long term (current) use of systemic steroids; Z79.899 Other long term (current) drug therapy; Z79.01 Long term (current) use of anticoagulants; Z87.891 Personal history of nicotine dependence
CPT/HCPCS: 36415; 71250; 74176; 80048; 80053; 82550; 82553; 83605; 83735; 84484; 85025; 85610; 86308; 86480; 86617; 86618; 86757; 87040; 87045; 87070; 87086; 87205; 87493; 87880; 88184; 88185; 89055; 93005; 93010; 93306; 94799; J0692; J3490; J7030

== ENCOUNTER → 2017-02-14 | Outpatient (CLI) | payer MEDICARE, BC ==
--- NOTE | 2017-02-15 09:54 | RADIOLOGY REPORT (SQ) ---
EXAM DESCRIPTION: PET CT SKULL/THIGH COMPLETED DATE/TIME: 02/14/2017 9:55 pm REASON FOR STUDY: SOLITARY PULMONARY NODULE R91.1 SOLITARY PULMONARY NODULE J98.4 OTHER DISORDERS OF LUNG COMPARISON: CT chest abdomen pelvis 01/21/2017. RADIONUCLIDE AND DOSE: 11.8 mCi F18 FDG The route of agent administration: Intravenous FASTING BLOOD SUGAR: 88 mg/dl CONTRAST TYPE AND DOSE: No CT contrast given. TECHNIQUE: Blood glucose level was verified. Above dose of FDG was injected intravenously. 2-D seg mented attenuation correction images were obtained from the base of the skull to the midthighs. Nonc ontrast CT images were obtained for attenuation correction and fusion with emission images. CT image s were performed without oral or intravenous contrast and are not sensitive for parenchymal lesions. A series of overlapping emission PET images were obtained. Images reviewed and manipulated at [facility] work station by the radiologist. Images stored on PACS. LIMITATIONS: None. FINDINGS: HEAD AND NECK: No areas of abnormal metabolic activity in the soft tissues of the head and neck. CHEST: Recently described station 4 pretracheal node measures maximum 3 SUV. Recently described righ t upper lobe nodule abutting the major fissure is not hypermetabolic. This measures about 6 x 9 mm o n the current study, however some differences may be due to differences in hardware. ABDOMEN AND PELVIS: No areas of abnormal metabolic activity in the abdomen or pelvis. Expected physi ologic activity is present in the genitourinary system and bowel. PROXIMAL LOWER EXTREMITIES: No areas of abnormal metabolic activity in the soft tissues of the lower extremities. BONES: No abnormal metabolic activity in the visualized skeleton. ADDITIONAL CT FINDINGS: No additional significant findings on the noncontrast CT images. OTHER: No other significant findings. IMPRESSION: Small non hypermetabolic nodule right upper lobe. Hypermetabolic station 4 lymph node, nonspecific. False negatives have been reported with pulmonary nodules less than 1 cm in short axis. Consider serial chest CT followup. TECHNICAL DOCUMENTATION: JOB ID: [id number]- All Rights Reserved
== END ==
LOC: RAD 19:00
PROVIDERS: ATTEND Internal Medicine
DX: R91.1 Solitary pulmonary nodule (principal); J98.4 Other disorders of lung
CPT/HCPCS: 78815; A9552

== ENCOUNTER → 2017-03-06 | Outpatient (CLI) | payer MEDICARE, BC ==
[2017-03-06 11:04] LABS: HEMATOCRIT 40.1 % (37.9-51.0); HEMOGLOBIN 13.7 g/dL (13.5-17.0); MEAN CORPUSCULAR HEMOGLOBIN 33.6 pg (27.0-33.4); MEAN CORPUSCULAR HGB CONC 34.2 g/dL (32.0-36.0); MEAN CORPUSCULAR VOLUME 98 fl (80-97); RED BLOOD COUNT 4.08 10^6/uL (4.35-5.55); WHITE BLOOD COUNT 4.7 10^3/uL (4.0-10.5)
[2017-03-06 11:14] LABS: ALANINE AMINOTRANSFERASE 40 U/L (21-72); ALBUMIN 3.7 g/dL (3.5-5.0); ALKALINE PHOSPHATASE 88 U/L (38-126); ANION GAP 10 (5-19); ASPARTATE AMINO TRANSFERASE 26 U/L (17-59); BILIRUBIN,DIRECT 0.3 mg/dL (0.0-0.4); BILIRUBIN,TOTAL 0.6 mg/dL (0.2-1.3); BLOOD UREA NITROGEN 15 mg/dL (7-20); CALCIUM 9.1 mg/dL (8.4-10.2); CARBON DIOXIDE 29 mmol/L (22-30); CHLORIDE 103 mmol/L (98-107); CREATININE RESULT 0.87 mg/dL (0.52-1.25); Direct HDL 43 mg/dL (>40); GLUCOSE 92 mg/dL (75-110); POTASSIUM 4.8 mmol/L (3.6-5.0); SODIUM 142.1 mmol/L (137-145); TOTAL PROTEIN 6.7 g/dL (6.3-8.2); TRIGLYCERIDES 70 mg/dL (<150)
[2017-03-06 11:24] LABS: BAND NEUTROPHILS % (MANUAL) 1 % (3-5); BASOPHILS % (MANUAL) 3 % (0-2); EOSINOPHILS % (MANUAL) 7 % (0-6); LYMPHOCYTES % (MANUAL) 33 % (13-45); TOTAL CELLS COUNTED 100
[2017-03-06 11:25] LABS: DIRECT LDL 56 mg/dL (<100)
[2017-03-06 11:26] LABS: RBC MORPHOLOGY COMMENT NORMO-CYTIC/CHROMIC
== END ==
LOC: OD 10:16
PROVIDERS: ATTEND Physician Assistant
DX: I10 Essential (primary) hypertension (principal); R73.09 Other abnormal glucose; E78.5 Hyperlipidemia, unspecified
CPT/HCPCS: 36415; 80053; 80061; 83036; 85025

== ENCOUNTER → 2017-09-30 | Outpatient (CLI) | payer MEDICARE, BC ==
--- NOTE | 2017-09-30 09:21 | RADIOLOGY REPORT (SQ) ---
EXAM DESCRIPTION: CT CHEST WITHOUT COMPLETED DATE/TIME: 09/30/2017 8:38 am REASON FOR STUDY: R91.1 SOLITARY PULMONARY NODULE R91.1 SOLITARY PULMONARY NODULE COMPARISON: PET-CT 02/14/2017 CT chest 01/21/2017 TECHNIQUE: CT scan performed of the chest without intravenous contrast. Images reviewed with lung, soft tissue and bone windows. Reconstructed coronal and sagittal MPR images reviewed. All images st ored on PACS. All CT scanners at this facility use dose modulation, iterative reconstruction, and/or weight based d osing when appropriate to reduce radiation dose to as low as reasonably achievable (ALARA). [facility]: Dose Right [facility]: CareDose [facility]: Dose Right [facility]: Teradose 4D [facility]: Favorite Words RADIATION DOSE: CT Rad equipment meets quality standard of care and radiation dose reduction techniq ues were employed. CTDIvol: 12.4 mGy. DLP: 483 mGy-cm. mGy. LIMITATIONS: No technical limitations. FINDINGS: LUNGS AND PLEURA: No masses, infiltrates, pneumothorax. No pleural effusions, calcificati ons. Specifically, the subcentimeter density along the right lateral major fissures seen on and 01/21/2017 has resolved. HILAR AND MEDIASTINAL STRUCTURES: A 1.7 x 0.7 cm precarinal lymph node is present, smaller than on pr evious exams (was 2.2 x 1.1 cm 01/21/2017). HEART AND VASCULAR STRUCTURES: No aneurysm. No pericardial effusion. Old sternotomy and CABG. UPPER ABDOMEN: No significant findings. Limited exam. THYROID AND OTHER SOFT TISSUES: No masses. No adenopathy. BONES: No significant finding. HARDWARE: None in the chest. OTHER: No other significant findings. IMPRESSION: NO SIGNIFICANT FINDING ON NON-CONTRASTED CHEST CT. TECHNICAL DOCUMENTATION: JOB ID: [id number] Quality ID # [id number]: Final reports with documentation of one or more dose reduction techniques (e.g., Au tomated exposure control, adjustment of the mA and/or kV according to patient size, use of iterative reconstruction technique) 2010 [employer]- All Rights Reserved Reading location - IP/workstation name: [facility]
== END ==
LOC: RAD 09:23
PROVIDERS: ATTEND Internal Medicine
DX: R91.1 Solitary pulmonary nodule (principal)
CPT/HCPCS: 71250

== ENCOUNTER → 2018-03-11 | Outpatient (CLI) | payer MEDICARE, BC ==
[2018-03-11 17:48] LABS: ANION GAP 10 (5-19); BLOOD UREA NITROGEN 20 mg/dL (7-20); CALCIUM 8.9 mg/dL (8.4-10.2); CARBON DIOXIDE 30 mmol/L (22-30); CHLORIDE 102 mmol/L (98-107); GLUCOSE 90 mg/dL (75-110); POTASSIUM 5.5 mmol/L (3.6-5.0); SODIUM 141.8 mmol/L (137-145)
== END ==
LOC: OD 15:55
PROVIDERS: ATTEND Physician Assistant
DX: E87.5 Hyperkalemia (principal)
CPT/HCPCS: 36415; 80048

== ENCOUNTER → 2018-03-16 | Outpatient (CLI) | payer MEDICARE, BC ==
[2018-03-16 11:17] LABS: ANION GAP 9 (5-19); BLOOD UREA NITROGEN 17 mg/dL (7-20); CARBON DIOXIDE 30 mmol/L (22-30); CHLORIDE 103 mmol/L (98-107); GLUCOSE 88 mg/dL (75-110); POTASSIUM 4.2 mmol/L (3.6-5.0); SODIUM 142.4 mmol/L (137-145)
== END ==
LOC: OD 09:46
PROVIDERS: ATTEND Family Medicine
DX: E87.5 Hyperkalemia (principal)
CPT/HCPCS: 36415; 80048

== ENCOUNTER 2018-12-13 15:57 | Emergency (ER) | payer MEDICARE, BC ==
[2018-12-13] MEDS ORDERED: DIPH/PERTUSS(ACELL)/TETANUS VAC/PF 0.5 ML SYR (>=10YO) IM ONE (16:26)
--- NOTE | 2018-12-13 16:29 | ER Document Report ---
ED Medical Screen (RME) - General Chief Complaint: Laceration Stated Complaint: LACERATION Time Seen by Provider: 12/13/18 16:21 Primary Care Provider: FREDO CORRALES MD [Primary Care Provider] - Follow up as needed TRAVEL OUTSIDE OF THE [place] IN LAST 30 DAYS: No - HPI Notes: 12/13/18 16:27 Patient is a 73-year-old male who presents complaining of laceration left forearm status post fall prior to arrival. Patient states he was 3 to 4 feet on a ladder when the ladder moved and he fell landing on his left forearm. Patient states that he did scrape the right forearm a little bit, but the laceration is to the left forearm. Patient states that he did not injure any other part of his body including his head/neck and did not have any loss of consciousness. Denies LEIVA, fever, neck pain, URI, CP, SOB, Abd pain, dysuria, back pain, or rash. I have treated and performed a rapid initial assessment of this patient. A comprehensive ED assessment and evaluation of the patient, analysis of test results and completion of medical decision making process will be conducted by additional ED providers. PHYSICAL EXAMINATION: GENERAL: Well-appearing, well-nourished and in no acute distress. A&Ox4. Answers questions appropriately. Neck/back: no midline tenderness Head: atraumatic. Left forearm: there is a [id number] "V" laceration to the left forearm. No active bleeding. N/V intact distal. No tenderness to the elbow, wrist, shoulder. 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
[2018-12-13] MEDS ORDERED: LIDOCAINE 1%/EPINEPHRINE INJ 20 ML VIAL INJ ONE (16:33)
--- NOTE | 2018-12-13 16:38 | ER Document Report ---
Addendum entered and electronically signed by RASHID PACHECO NP 12/22/18 21:28: Doctor's Note Notes: 12/22/18 21:27 The lacerations were large to the left arm and that is when sutures were applied. There was multiple pieces of wood removed from the left arm. The right arm had superficial scattered lacerations and skin tears Original Note: ED Extremity Problem, Upper - General Chief Complaint: Laceration Stated Complaint: LACERATION Time Seen by Provider: 12/13/18 16:21 Primary Care Provider: FREDO CORRALES MD [Primary Care Provider] - Follow up as needed Mode of Arrival: Ambulatory Information source: Patient Notes: 73-year-old male presented to ED for complaint of laceration to his left forearm just below the elbow. He states he fell off of a ladder just before coming to the emergency room. He states he knows he did not break anything because he can move his arm freely. He states he has no other injuries anywhere except for on this arm. He states he knows he should be up on the lateral but he did not want to pay for someone to fix what he needed to fix. He states his is already fussed at him so please do not facet them anymore. He denies any headache neck ache or any other pain. He states he is on Eliquis. Patient is alert oriented respirations regular and unlabored speaking in full sentences walks with a even steady gait. He does have full range of motion to his elbow and his wrist. TRAVEL OUTSIDE OF THE [place] IN LAST 30 DAYS: No - HPI Patient complains to provider of: Left, Forearm Onset: Just prior to arrival Recent injury: Yes Where: Home, Indoors Quality of pain: Burning, Sharp Severity of pain: Moderate Pain Level: 3 Context: Fall - Off ladder, multiple lacerations left forearm superficial lacerations and abrasions to the right forearm Associated symptoms: Other - Burning pain to both arms Exacerbated by: Movement, Exertion Relieved by: Nothing Similar symptoms previously: No Recently seen / treated by doctor: No - Related Data Allergies/Adverse Reactions: ibuprofen Allergy (Verified 12/13/18 15:58) Past Medical History - General Information source: Patient - Social History Smoking Status: Former Smoker Frequency of alcohol use: None Drug Abuse: None Lives with: Family Family History: Reviewed & Not Pertinent, CAD, Hypertension Patient has suicidal ideation: No Patient has homicidal ideation: No - Past Medical History Cardiac Medical History: Reports: Hx Atrial Fibrillation, Hx Coronary Artery Disease, Hx Hypercholesterolemia, Hx Hypertension Pulmonary Medical History: Reports: None EENT Medical History: Reports: None Neurological Medical History: Reports: None Endocrine Medical History: Reports: None Renal/ Medical History: Reports: None Malignancy Medical History: Reports None GI Medical History: Reports: None Musculoskeletal Medical History: Reports Hx Arthritis, Reports Hx Musculoskeletal Deformity, Reports Hx Musculoskeletal Trauma Skin Medical History: Reports None Psychiatric Medical History: Reports: None Infectious Medical History: Reports: None Past Surgical History: Reports: Hx Cardiac Surgery - cabg x 4, Hx Coronary Artery Bypass Graft, 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), Hx Tonsillectomy - Immunizations Immunizations up to date: Yes Hx Diphtheria, Pertussis, Tetanus Vaccination: Yes - 12/13/2018 Review of Systems - Review of Systems Constitutional: No symptoms reported EENT: No symptoms reported Cardiovascular: No symptoms reported Respiratory: No symptoms reported Gastrointestinal: No symptoms reported Genitourinary: No symptoms reported Male Genitourinary: No symptoms reported Musculoskeletal: No symptoms reported Skin: Other - Multiple lacerations left and right forearm Hematologic/Lymphatic: No symptoms reported Neurological/Psychological: No symptoms reported Physical Exam - Vital signs Vitals: Temp Pulse Resp BP Pulse Ox 97.8 F 52 L 16 160/74 H 95 12/13/18 16:04 12/13/18 16:04 12/13/18 16:04 12/13/18 16:04 12/13/18 16:04 Interpretation: Normal - General General appearance: Appears well, Alert - HEENT Head: Normocephalic, Atraumatic Eyes: Normal Pupils: PERRL - Respiratory Respiratory status: No respiratory distress Chest status: Nontender Breath sounds: Normal Chest palpation: Normal - Cardiovascular Rhythm: Regular Heart sounds: Normal auscultation Murmur: No - Abdominal Inspection: Normal Distension: No distension Bowel sounds: Normal Tenderness: Nontender Organomegaly: No organomegaly - Back Back: Normal, Nontender - Extremities General upper extremity: Normal inspection, Nontender, Normal color, Normal ROM, Normal temperature General lower extremity: Normal inspection, Nontender, Normal color, Normal ROM, Normal temperature, Normal weight bearing. No: Kristie's sign - Neurological Neuro grossly intact: Yes Cognition: Normal Orientation: AAOx4 [place] Coma Scale Eye Opening: Spontaneous Alberto Coma Scale Verbal: Oriented [place] Coma Scale Motor: Obeys Commands Alberto Coma Scale Total: 15 Speech: Normal Motor strength normal: LUE, RUE, LLE, RLE Sensory: Normal - Psychological Associated symptoms: Normal affect, Normal mood - Skin Skin Temperature: Warm Skin Moisture: Dry Skin Color: Normal Skin irregularity: Laceration - There is a large flap laceration to the left forearm one leg 5 cm down the leg 7 cm and right beside it is a smaller laceration that is 4 cm both of them are gaping. There was multiple foreign bodies in this wound the largest a piece of wood about 3 cm long one that was a centimeter and a half long and about 6 other pieces. There were multiple small superficial laceration and skin tears to the right arm there were all cleaned also bacitracin and Telfa with Covan applied to both arms Course - Re-evaluation Re-evalutation: 12/14/18 01:32 After the 2 lacerations on the left arm were closed with sutures dressings of bacitracin Telfa and Covan applied to the left and the right arms. was given instructions on wound care for both arms. Patient was instructed to complete his antibiotics until they were completed and to dress his wounds 3 times a day. Patient to follow-up with primary care or an urgent care in 3 days for wound check and in 10 to 12 days for suture removal. Patient and verbalized understanding and agreement with treatment plan. - Vital Signs Vital signs: Temp Pulse Resp BP Pulse Ox 97.8 F 54 L 16 178/83 H 100 12/13/18 16:04 12/13/18 18:24 12/13/18 18:24 12/13/18 18:24 12/13/18 18:24 Procedures - Laceration/Wound Repair Right forearm #1 Time completed: 18:00 Wound length (cm): 12 Wound's Depth, Shape: Irregular, Flap, Contused tissue Laceration pre-procedure: Sterile PPE donned, Sterile drapes applied - No Anesthetic type: 1% Lidocaine w/epi Volume Anesthetic (mLs): 8 Wound explored: Contaminated, Foreign body removed - 8 pieces of wood removed from the laceration see assessment for size of larger piece Irrigated w/ Saline (mLs): 500 Wound Debrided: Minimal Wound Repaired With: Sutures Suture Size/Type: 3:0, Ethilon Number of Sutures: 14 - 4 mattress sutures and 10 interrupted sutures Post-procedure wound care: Sterile dressing applied Post-procedure NV exam normal: Yes Complications: Yes - Very irregular left laceration that needed pieces of skin and wound removed Right forearm #2 Time completed: 18:00 Wound length (cm): 3 Wound's Depth, Shape: Into muscle, Linear, Contused tissue Laceration pre-procedure: Sterile PPE donned, Sterile drapes applied Anesthetic type: 1% Lidocaine w/epi Volume Anesthetic (mLs): 2 Wound explored: Contaminated, Foreign body removed Irrigated w/ Saline (mLs): 100 Wound Debrided: Minimal Wound Repaired With: Sutures Suture Size/Type: 3:0, Ethilon Number of Sutures: 4 Layer Closure?: No Post-procedure wound care: Sterile dressing applied Post-procedure NV exam normal: Yes Complications: No Discharge - Discharge Clinical Impression: Multiple lacerations left forearm, Multiple superficial lacerations r arm Condition: Stable Disposition: HOME, SELF-CARE Additional Instructions: LACERATION CARE: Your laceration has been sutured to keep the skin edges aligned during healing. The time of suture removal depends on the nature and location of your cut. Please follow the care instructions the doctor has outlined for you and return for further care, according to the schedule you've been given. Keep the wound and dressing clean. Unless you were told otherwise, you may shower daily, blotting the wound dry with a clean, unused towel. At other times, If the dressing gets wet or blood soaked, remove it and blot the wound dry, then reapply a new dressing. Unless you were instructed otherwise, dressings should be changed at least daily. If any signs of infection occur (swelling, redness, drainage, increasing tenderness, red streaks, tender lumps in the armpit or groin above the laceration, or fever), see the doctor immediately. SOAP CLEANSING: Gently wash the wound daily using a mild soap (like Ivory, Phisoderm, Neutrogena). Use warm water, rubbing gently until all debris, ooze, and crusting have been washed from the wound. Allow to dry briefly (about 10 minutes) after cleaning. Repeat this cleansing at least three times a day for the first two days and then once or twice a day. ANTIBIOTIC OINTMENT PROTECTION: Your wounds are such that dressing them is not practical or optional. After cleansing, you should apply a thin coating of antibiotic ointment (Bacitracin, not Neosporin) to the wounds at least three times daily. This lessens infection risk, and may decrease the amount of scarring. Use a q-tip or dull butter knife, not your finger, to apply this ointment. Any debris or ooze which builds up in the ointment should be gently rubbed off with a sterile gauze pad. Harder crusting may need to be gently scrubbed off with a clean wash cloth with soap and warm water, perhaps applying a warm, wet wash cloth to the wound for ten minutes first. Development of redness, severe itching, or blistering may mean allergy to the ointment. See the doctor. TETANUS IMMUNIZATION GIVEN: You have been given an immunization against tetanus. Please record this in your records. In general, a booster is needed only once every 10 years. The tetanus shot protects against tetanus or "lockjaw," which is a complication of certain wound infections (the tetanus shot cannot protect against the actual infection). The immunization site may become warm and red due to local reaction. If this occurs, apply warm compresses and take aspirin or ibuprofen to reduce inflammation and discomfort. Return for evaluation if the reaction becomes severe. PROPHYLACTIC ANTIBIOTIC: The antibiotics which have been prescribed are designed to decrease the risk of infection. Only certain types of wounds benefit from this -- the typical cut, scrape, or burn DOES NOT require antibiotics. Of course, infection can still occur despite the use of prophylactic antibiotics. Your wound will heal with less chance of an infectious complication if you take the medication as directed. The most important dose is the FIRST dose, so don't delay filling the prescription! FOLLOW-UP CARE: Please follow-up with primary doctor in 3 days for an infection check . Your sutures should be removed in _10-12____ days. To facilitate a timely removal of your sutures, you may return to the Emergency Department at [facility]. You do not need to call for an appointment, but the best time to come in for suture removal is early in the morning. If you have been referred to another physician for follow-up care, call that physicians office for an appointment as you were instructed. If you experience a significant change in your laceration, or if you are concerned there may be an infection (swelling, redness, drainage, increasing tenderness, red streaks, tender lumps in the armpit or groin above the laceration, or fever), return to the Emergency Department immediately re-evaluation. Prescriptions: Cephalexin Monohydrate [Keflex 500 mg Capsule] 500 mg PO Q6H 5 Days capsule Forms: Elevated Blood Pressure Referrals: FREDO CORRALES MD [Primary Care Provider] - Follow up as needed
--- NOTE | 2018-12-13 17:14 | RADIOLOGY REPORT (SQ) ---
EXAM DESCRIPTION: FOREARM LEFT COMPLETED DATE/TIME: 12/13/2018 5:06 pm REASON FOR STUDY: left forearm lac/injury s/p fall COMPARISON: None. NUMBER OF VIEWS: Two views. TECHNIQUE: Two radiographic images acquired of the left forearm, including elbow and wrist in at [address] one projection. LIMITATIONS: None. FINDINGS: MINERALIZATION: Normal. BONES: No acute fracture. No worrisome bone lesions. SOFT TISSUES: Soft tissue injury and swelling along the posterior aspect of the proximal forearm. No obvious foreign body. OTHER: No other significant finding. IMPRESSION: 1. Soft tissue injury and swelling proximal posterior forearm. 2. No acute osseous findings. TECHNICAL DOCUMENTATION: JOB ID: [id number] [employer]- All Rights Reserved Reading location - IP/workstation name: [email or web address]
[2018-12-13] MEDS ORDERED: BACITRACIN OPH OINT 3.5 GM TP ONE (17:49)
[2018-12-13] MEDS ORDERED: BACITRACIN ZINC OINTMENT 15 GM TP ONE (18:03)
[2018-12-13] MEDS ORDERED: CEPHALEXIN 500 MG CAPSULE PO ONE (18:13)
[2018-12-13 18:26] VITALS: BP 178/83
== END 2018-12-13 18:24 | disposition home or self-care (01) ==
LOC: ER 15:57
DX: S56.922A Laceration of unspecified muscles, fascia and tendons at forearm level, left arm, initial encounter (principal); S51.822A Laceration with foreign body of left forearm, initial encounter; S51.811A Laceration without foreign body of right forearm, initial encounter; W11.XXXA Fall on and from ladder, initial encounter; Y92.009 Unspecified place in unspecified non-institutional (private) residence as the place of occurrence of the external cause; I25.10 Atherosclerotic heart disease of native coronary artery without angina pectoris; I10 Essential (primary) hypertension; I48.91 Unspecified atrial fibrillation; Z79.02 Long term (current) use of antithrombotics/antiplatelets; Z95.1 Presence of aortocoronary bypass graft; Z88.8 Allergy status to other drugs, medicaments and biological substances
CPT/HCPCS: 12005; 99283; 90471; 73090; 90715; J3490 ×2; A9270 ×2